=== PATIENT | male | born 1940 | race Caucasian/White ===

== ENCOUNTER 2017-02-13 00:21 | Day surgery (SDC) | payer OTHER, SELFPAY ==
[~2017-02-13 00:21] MED LIST: ALBU90OI INH; ALLO100 PO; AMLO5 PO; AMOCLA250S PO; ASPI81CH PO; Amlodipine Bes2.5 MG; Citrate Of Mag300 ML PO; Cleocin HCl150 MG PO; FLUOCINONIDE TOP; GABA100 PO; GLIP5ER PO; HYDHCL25 PO; LOSA25; LOSA50 PO; Lasix40 MG PO; METF500 PO; METF500C PO; Micro-K10 MEQ; Micro-K10 MEQ PO; Omega 3 Fish O1 EACH PO; PRAV20; PRAV20 PO; Robaxin500 MG PO; SPIR25 PO; TRAM50; TRAM50 PO; TRAZ100 PO; Ultram50 MG PO; [UNRECOGNIZED DRUG - OTHER] TOP
== END 2017-02-13 12:35 | disposition home or self-care (01) ==
LOC: WOUND 00:21
PROC: 2W1TX6Z Compression of Left Foot using Pressure Dressing (ICD-10-PCS; principal; 2017-02-13)
DX: Z48.00 Encounter for change or removal of nonsurgical wound dressing (principal); E11.621 Type 2 diabetes mellitus with foot ulcer; L97.529 Non-pressure chronic ulcer of other part of left foot with unspecified severity; S91.302A Unspecified open wound, left foot, initial encounter
CPT/HCPCS: G0463

== ENCOUNTER 2017-02-15 10:00 | Day surgery (SDC) | payer OTHER, SELFPAY | END 2017-02-15 14:31 | disposition home or self-care (01) | LOC: HBO 10:00 | PROC: 5A05221 Extracorporeal Hyperbaric Oxygenation, Continuous (ICD-10-PCS; principal; 2017-02-15) | DX: Z48.00 Encounter for change or removal of nonsurgical wound dressing (principal); E11.621 Type 2 diabetes mellitus with foot ulcer; S91.302A Unspecified open wound, left foot, initial encounter | CPT/HCPCS: 82947; G0277 ==

== ENCOUNTER 2017-02-19 09:29 | Day surgery (SDC) | payer OTHER, SELFPAY | END 2017-02-19 12:58 | disposition home or self-care (01) | LOC: HBO 09:29 | DX: Z48.00 Encounter for change or removal of nonsurgical wound dressing (principal); E11.621 Type 2 diabetes mellitus with foot ulcer; S91.302A Unspecified open wound, left foot, initial encounter | CPT/HCPCS: 82947; G0277 ==

== ENCOUNTER 2017-02-20 09:30 | Day surgery (SDC) | payer OTHER, SELFPAY | END 2017-02-20 22:59 | disposition home or self-care (01) | LOC: HBO 09:30 | PROC: 5A05221 Extracorporeal Hyperbaric Oxygenation, Continuous (ICD-10-PCS; principal; 2017-02-20) | DX: Z48.00 Encounter for change or removal of nonsurgical wound dressing (principal); E11.621 Type 2 diabetes mellitus with foot ulcer; S91.302A Unspecified open wound, left foot, initial encounter | CPT/HCPCS: 82947; G0277 ==

== ENCOUNTER 2017-02-20 12:33 | Day surgery (SDC) | payer OTHER, SELFPAY | END 2017-02-20 17:17 | disposition home or self-care (01) | LOC: WOUND 12:33 | DX: Z48.00 Encounter for change or removal of nonsurgical wound dressing (principal); E11.621 Type 2 diabetes mellitus with foot ulcer; S91.302A Unspecified open wound, left foot, initial encounter; L97.429 Non-pressure chronic ulcer of left heel and midfoot with unspecified severity | CPT/HCPCS: G0463 ==

== ENCOUNTER 2017-02-21 09:27 | Day surgery (SDC) | payer OTHER, SELFPAY | END 2017-02-21 23:15 | disposition home or self-care (01) | LOC: HBO 09:27 | PROC: 5A05221 Extracorporeal Hyperbaric Oxygenation, Continuous (ICD-10-PCS; principal; 2017-02-21) | DX: Z48.00 Encounter for change or removal of nonsurgical wound dressing (principal); E11.621 Type 2 diabetes mellitus with foot ulcer; S91.302A Unspecified open wound, left foot, initial encounter | CPT/HCPCS: 82947; G0277 ==

== ENCOUNTER 2017-02-25 00:19 | Day surgery (SDC) | payer OTHER, SELFPAY | END 2017-02-25 13:21 | disposition home or self-care (01) | LOC: HBO 00:19 | DX: Z48.00 Encounter for change or removal of nonsurgical wound dressing (principal); E11.621 Type 2 diabetes mellitus with foot ulcer; S91.302A Unspecified open wound, left foot, initial encounter | CPT/HCPCS: 82947; G0277 ==

== ENCOUNTER 2017-02-26 00:34 | Day surgery (SDC) | payer OTHER, SELFPAY | END 2017-02-26 16:58 | disposition home or self-care (01) | LOC: HBO 00:34 | DX: Z48.00 Encounter for change or removal of nonsurgical wound dressing (principal); E11.621 Type 2 diabetes mellitus with foot ulcer; S91.302A Unspecified open wound, left foot, initial encounter | CPT/HCPCS: 82947; G0277 ==

== ENCOUNTER 2017-02-27 10:00 | Day surgery (SDC) | payer OTHER, SELFPAY | END 2017-02-28 22:49 | disposition home or self-care (01) | LOC: HBO 10:00 | DX: Z48.00 Encounter for change or removal of nonsurgical wound dressing (principal); E11.621 Type 2 diabetes mellitus with foot ulcer; S91.302A Unspecified open wound, left foot, initial encounter | CPT/HCPCS: 82947; G0277 ==

== ENCOUNTER 2017-02-27 12:38 | Day surgery (SDC) | payer OTHER, SELFPAY | END 2017-02-27 16:03 | disposition home or self-care (01) | LOC: WOUND 12:38 | PROC: 2W1MX6Z Compression of Left Lower Extremity using Pressure Dressing (ICD-10-PCS; principal; 2017-02-27) | PROC: 2W1TX6Z Compression of Left Foot using Pressure Dressing (ICD-10-PCS; principal; 2017-02-27) | DX: Z48.00 Encounter for change or removal of nonsurgical wound dressing (principal); E11.621 Type 2 diabetes mellitus with foot ulcer; S91.302A Unspecified open wound, left foot, initial encounter; F17.200 Nicotine dependence, unspecified, uncomplicated; I73.9 Peripheral vascular disease, unspecified; J44.9 Chronic obstructive pulmonary disease, unspecified; G47.30 Sleep apnea, unspecified; L97.422 Non-pressure chronic ulcer of left heel and midfoot with fat layer exposed; L97.822 Non-pressure chronic ulcer of other part of left lower leg with fat layer exposed | CPT/HCPCS: G0463 ==

== ENCOUNTER 2017-02-28 09:30 | Day surgery (SDC) | payer OTHER, SELFPAY | END 2017-02-28 16:52 | disposition home or self-care (01) | LOC: HBO 09:30 | PROC: 5A05221 Extracorporeal Hyperbaric Oxygenation, Continuous (ICD-10-PCS; principal; 2017-02-28) | DX: Z48.00 Encounter for change or removal of nonsurgical wound dressing (principal); E11.621 Type 2 diabetes mellitus with foot ulcer; S91.302A Unspecified open wound, left foot, initial encounter | CPT/HCPCS: 82947; G0277 ==

== ENCOUNTER 2017-03-01 12:00 | Day surgery (SDC) | payer OTHER, SELFPAY | END 2017-03-01 12:35 | disposition home or self-care (01) | LOC: WOUND 12:00 | DX: Z48.00 Encounter for change or removal of nonsurgical wound dressing (principal); E11.621 Type 2 diabetes mellitus with foot ulcer; S91.302A Unspecified open wound, left foot, initial encounter ==

== ENCOUNTER 2017-03-04 09:41 | Day surgery (SDC) | payer OTHER, SELFPAY | END 2017-03-04 22:56 | disposition home or self-care (01) | LOC: HBO 09:41 | PROC: 5A05221 Extracorporeal Hyperbaric Oxygenation, Continuous (ICD-10-PCS; principal; 2017-03-04) | DX: Z48.00 Encounter for change or removal of nonsurgical wound dressing (principal); E11.621 Type 2 diabetes mellitus with foot ulcer; S91.302A Unspecified open wound, left foot, initial encounter | CPT/HCPCS: 82947; G0277 ==

== ENCOUNTER 2017-03-05 09:30 | Day surgery (SDC) | payer OTHER, SELFPAY | END 2017-03-05 22:53 | disposition home or self-care (01) | LOC: HBO 09:30 | PROC: 5A05221 Extracorporeal Hyperbaric Oxygenation, Continuous (ICD-10-PCS; principal; 2017-03-05) | DX: Z48.00 Encounter for change or removal of nonsurgical wound dressing (principal); E11.621 Type 2 diabetes mellitus with foot ulcer; S91.302A Unspecified open wound, left foot, initial encounter | CPT/HCPCS: 82947; G0277 ==

== ENCOUNTER 2017-03-06 12:30 | Day surgery (SDC) | payer OTHER, SELFPAY | END 2017-03-06 14:52 | disposition home or self-care (01) | LOC: WOUND 12:30 | DX: Z48.00 Encounter for change or removal of nonsurgical wound dressing (principal); E11.621 Type 2 diabetes mellitus with foot ulcer; S91.302A Unspecified open wound, left foot, initial encounter; L97.529 Non-pressure chronic ulcer of other part of left foot with unspecified severity ==

== ENCOUNTER 2017-03-07 10:00 | Day surgery (SDC) | payer OTHER, SELFPAY | END 2017-03-07 12:26 | disposition home or self-care (01) | LOC: HBO 10:00 | PROC: 5A05221 Extracorporeal Hyperbaric Oxygenation, Continuous (ICD-10-PCS; principal; 2017-03-07) | DX: Z48.00 Encounter for change or removal of nonsurgical wound dressing (principal); E11.621 Type 2 diabetes mellitus with foot ulcer; S91.302A Unspecified open wound, left foot, initial encounter | CPT/HCPCS: 82947; G0277 ==

== ENCOUNTER 2017-03-08 13:00 | Day surgery (SDC) | payer OTHER, SELFPAY | END 2017-03-08 14:39 | disposition home or self-care (01) | LOC: WOUND 13:00 | PROC: 2W1TX6Z Compression of Left Foot using Pressure Dressing (ICD-10-PCS; principal; 2017-03-08) | DX: Z48.00 Encounter for change or removal of nonsurgical wound dressing (principal); E11.621 Type 2 diabetes mellitus with foot ulcer; S91.302A Unspecified open wound, left foot, initial encounter; E08.621 Diabetes mellitus due to underlying condition with foot ulcer ==

== ENCOUNTER 2017-03-12 10:00 | Day surgery (SDC) | payer OTHER, SELFPAY | END 2017-03-12 12:55 | disposition home or self-care (01) | LOC: HBO 10:00 | DX: Z48.00 Encounter for change or removal of nonsurgical wound dressing (principal); E11.621 Type 2 diabetes mellitus with foot ulcer; S91.302A Unspecified open wound, left foot, initial encounter; L97.429 Non-pressure chronic ulcer of left heel and midfoot with unspecified severity; L97.929 Non-pressure chronic ulcer of unspecified part of left lower leg with unspecified severity | CPT/HCPCS: 82947; G0277 ==

== ENCOUNTER 2017-03-14 10:00 | Day surgery (SDC) | payer OTHER, SELFPAY | END 2017-03-14 11:44 | disposition home or self-care (01) | LOC: HBO 10:00 | PROC: 5A05221 Extracorporeal Hyperbaric Oxygenation, Continuous (ICD-10-PCS; principal; 2017-03-14) | DX: E11.621 Type 2 diabetes mellitus with foot ulcer (principal); S91.302A Unspecified open wound, left foot, initial encounter; Z48.00 Encounter for change or removal of nonsurgical wound dressing | CPT/HCPCS: 82947; 87070; 87075; 87077; 87147; 87186; 87205; G0277; G0463 ==

== ENCOUNTER 2017-03-19 09:49 | Day surgery (SDC) | payer OTHER, SELFPAY | END 2017-03-19 23:04 | disposition home or self-care (01) | LOC: HBO 09:49 | DX: Z48.00 Encounter for change or removal of nonsurgical wound dressing (principal); E11.621 Type 2 diabetes mellitus with foot ulcer; S91.302A Unspecified open wound, left foot, initial encounter | CPT/HCPCS: 82947; G0277; G0463 ==

== ENCOUNTER 2017-03-21 00:53 | Day surgery (SDC) | payer OTHER, SELFPAY | END 2017-03-21 22:46 | disposition home or self-care (01) | LOC: HBO 00:53 | PROC: 5A05221 Extracorporeal Hyperbaric Oxygenation, Continuous (ICD-10-PCS; principal; 2017-03-21) | DX: Z48.00 Encounter for change or removal of nonsurgical wound dressing (principal); E11.621 Type 2 diabetes mellitus with foot ulcer; S91.302A Unspecified open wound, left foot, initial encounter | CPT/HCPCS: 82947; G0277 ==

== ENCOUNTER 2017-03-22 00:43 | Day surgery (SDC) | payer OTHER, SELFPAY | END 2017-03-22 23:30 | disposition home or self-care (01) | LOC: WOUND 00:43 | DX: Z48.00 Encounter for change or removal of nonsurgical wound dressing (principal); E11.621 Type 2 diabetes mellitus with foot ulcer; S91.302A Unspecified open wound, left foot, initial encounter; E11.622 Type 2 diabetes mellitus with other skin ulcer; L97.929 Non-pressure chronic ulcer of unspecified part of left lower leg with unspecified severity | CPT/HCPCS: G0463 ==

== ENCOUNTER 2017-03-22 00:44 | Day surgery (SDC) | payer OTHER, SELFPAY | END 2017-03-22 23:30 | disposition home or self-care (01) | LOC: HBO 00:44 | PROC: 5A05221 Extracorporeal Hyperbaric Oxygenation, Continuous (ICD-10-PCS; principal; 2017-03-22) | DX: E11.621 Type 2 diabetes mellitus with foot ulcer (principal); S91.302A Unspecified open wound, left foot, initial encounter; Z48.00 Encounter for change or removal of nonsurgical wound dressing | CPT/HCPCS: 82947; G0277; G0463 ==

== ENCOUNTER 2017-03-25 00:03 | Day surgery (SDC) | payer OTHER, SELFPAY | END 2017-03-25 22:54 | disposition home or self-care (01) | LOC: HBO 00:03 | PROC: 5A05221 Extracorporeal Hyperbaric Oxygenation, Continuous (ICD-10-PCS; principal; 2017-03-25) | DX: Z48.00 Encounter for change or removal of nonsurgical wound dressing (principal); E11.621 Type 2 diabetes mellitus with foot ulcer; S91.302A Unspecified open wound, left foot, initial encounter | CPT/HCPCS: 82947; G0277 ==

== ENCOUNTER 2017-03-25 00:11 | Day surgery (SDC) | payer OTHER, SELFPAY | END 2017-03-25 11:47 | disposition home or self-care (01) | LOC: WOUND 00:11 | PROC: 0HBLXZZ Excision of Left Lower Leg Skin, External Approach (ICD-10-PCS; principal; 2017-03-25) | DX: Z48.00 Encounter for change or removal of nonsurgical wound dressing (principal); E11.621 Type 2 diabetes mellitus with foot ulcer; S91.302A Unspecified open wound, left foot, initial encounter | CPT/HCPCS: G0463 ==

== ENCOUNTER 2017-03-27 00:05 | Day surgery (SDC) | payer OTHER, SELFPAY | END 2017-03-27 09:31 | disposition home or self-care (01) | LOC: WOUND 00:05 | DX: Z48.00 Encounter for change or removal of nonsurgical wound dressing (principal); E11.621 Type 2 diabetes mellitus with foot ulcer; S91.302A Unspecified open wound, left foot, initial encounter | CPT/HCPCS: G0463 ==

== ENCOUNTER 2017-03-29 07:51 | Day surgery (SDC) | payer OTHER, SELFPAY | END 2017-03-29 10:48 | disposition home or self-care (01) | LOC: WOUND 07:51 | DX: Z48.00 Encounter for change or removal of nonsurgical wound dressing (principal); E11.621 Type 2 diabetes mellitus with foot ulcer; S91.302A Unspecified open wound, left foot, initial encounter | CPT/HCPCS: G0463 ==

== ENCOUNTER 2017-04-01 00:13 | Day surgery (SDC) | payer OTHER, SELFPAY | END 2017-04-01 14:34 | disposition home or self-care (01) | LOC: WOUND 00:13 | DX: Z48.00 Encounter for change or removal of nonsurgical wound dressing (principal); E11.621 Type 2 diabetes mellitus with foot ulcer; S91.302A Unspecified open wound, left foot, initial encounter | CPT/HCPCS: G0463 ==

== ENCOUNTER 2017-04-03 10:19 | Day surgery (SDC) | payer OTHER, SELFPAY | END 2017-04-03 12:40 | disposition home or self-care (01) | LOC: WOUND 10:19 | DX: Z48.00 Encounter for change or removal of nonsurgical wound dressing (principal); E11.621 Type 2 diabetes mellitus with foot ulcer; S91.302A Unspecified open wound, left foot, initial encounter | CPT/HCPCS: G0463 ==

== ENCOUNTER 2017-04-05 00:37 | Day surgery (SDC) | payer OTHER, SELFPAY | END 2017-04-05 22:00 | disposition home or self-care (01) | LOC: WOUND 00:37 | PROC: 0HBNXZZ Excision of Left Foot Skin, External Approach (ICD-10-PCS; principal; 2017-04-05) | DX: Z48.00 Encounter for change or removal of nonsurgical wound dressing (principal); E11.621 Type 2 diabetes mellitus with foot ulcer; S91.302A Unspecified open wound, left foot, initial encounter; L97.429 Non-pressure chronic ulcer of left heel and midfoot with unspecified severity | CPT/HCPCS: G0463 ==

== ENCOUNTER 2017-04-08 09:53 | Day surgery (SDC) | payer OTHER, SELFPAY | END 2017-04-08 10:33 | disposition home or self-care (01) | LOC: WOUND 09:53 | DX: Z48.00 Encounter for change or removal of nonsurgical wound dressing (principal); E11.621 Type 2 diabetes mellitus with foot ulcer; L97.429 Non-pressure chronic ulcer of left heel and midfoot with unspecified severity; S91.302A Unspecified open wound, left foot, initial encounter | CPT/HCPCS: G0463 ==

== ENCOUNTER 2017-04-10 00:10 | Day surgery (SDC) | payer OTHER, SELFPAY | END 2017-04-10 22:47 | disposition home or self-care (01) | LOC: HBO 00:10 | PROC: 5A05221 Extracorporeal Hyperbaric Oxygenation, Continuous (ICD-10-PCS; principal; 2017-04-10) | DX: E11.621 Type 2 diabetes mellitus with foot ulcer (principal); S91.302A Unspecified open wound, left foot, initial encounter; Z48.00 Encounter for change or removal of nonsurgical wound dressing | CPT/HCPCS: 82947; G0277; G0463 ==

== ENCOUNTER 2017-04-10 00:14 | Day surgery (SDC) | payer OTHER, SELFPAY | END 2017-04-10 22:48 | disposition home or self-care (01) | LOC: WOUND 00:14 | DX: Z48.00 Encounter for change or removal of nonsurgical wound dressing (principal); E11.621 Type 2 diabetes mellitus with foot ulcer; S91.302A Unspecified open wound, left foot, initial encounter | CPT/HCPCS: G0463 ==

== ENCOUNTER 2017-04-11 00:23 | Day surgery (SDC) | payer OTHER, SELFPAY | END 2017-04-11 23:15 | disposition home or self-care (01) | LOC: HBO 00:23 | DX: Z48.00 Encounter for change or removal of nonsurgical wound dressing (principal); E11.621 Type 2 diabetes mellitus with foot ulcer; S91.302D Unspecified open wound, left foot, subsequent encounter; L97.429 Non-pressure chronic ulcer of left heel and midfoot with unspecified severity; L97.829 Non-pressure chronic ulcer of other part of left lower leg with unspecified severity | CPT/HCPCS: 82947; G0277 ==

== ENCOUNTER 2017-04-12 00:48 | Day surgery (SDC) | payer OTHER, SELFPAY | END 2017-04-12 23:27 | disposition home or self-care (01) | LOC: WOUND 00:48 | DX: Z48.00 Encounter for change or removal of nonsurgical wound dressing (principal); E11.621 Type 2 diabetes mellitus with foot ulcer; L97.429 Non-pressure chronic ulcer of left heel and midfoot with unspecified severity; S91.302A Unspecified open wound, left foot, initial encounter; F17.210 Nicotine dependence, cigarettes, uncomplicated; J44.9 Chronic obstructive pulmonary disease, unspecified; G47.30 Sleep apnea, unspecified | CPT/HCPCS: 82947; G0463 ==

== ENCOUNTER 2017-04-12 00:56 | Day surgery (SDC) | payer OTHER, SELFPAY | END 2017-04-12 23:27 | disposition home or self-care (01) | LOC: HBO 00:56 | PROC: 5A05221 Extracorporeal Hyperbaric Oxygenation, Continuous (ICD-10-PCS; principal; 2017-04-12) | DX: E11.621 Type 2 diabetes mellitus with foot ulcer (principal); S91.302A Unspecified open wound, left foot, initial encounter | CPT/HCPCS: 82947; G0277; G0463 ==

== ENCOUNTER 2017-04-15 | Day surgery (SDC) | END 2017-04-15 23:00 | disposition home or self-care (01) ==

== ENCOUNTER 2017-04-15 00:19 | Day surgery (SDC) | payer OTHER, SELFPAY | END 2017-04-15 22:51 | disposition home or self-care (01) | LOC: WOUND 00:19 | DX: Z48.00 Encounter for change or removal of nonsurgical wound dressing (principal); E11.621 Type 2 diabetes mellitus with foot ulcer; S91.302A Unspecified open wound, left foot, initial encounter | CPT/HCPCS: G0463 ==

== ENCOUNTER 2017-04-17 07:44 | Day surgery (SDC) | payer OTHER, SELFPAY | END 2017-04-17 22:37 | disposition home or self-care (01) | LOC: WOUND 07:44 | DX: Z48.00 Encounter for change or removal of nonsurgical wound dressing (principal); E11.621 Type 2 diabetes mellitus with foot ulcer; S91.302A Unspecified open wound, left foot, initial encounter | CPT/HCPCS: G0463 ==

== ENCOUNTER 2017-04-17 08:02 | Day surgery (SDC) | payer OTHER, SELFPAY | END 2017-04-17 22:37 | disposition home or self-care (01) | LOC: HBO 08:02 | PROC: 5A05221 Extracorporeal Hyperbaric Oxygenation, Continuous (ICD-10-PCS; principal; 2017-04-17) | DX: E11.621 Type 2 diabetes mellitus with foot ulcer (principal); S91.302A Unspecified open wound, left foot, initial encounter | CPT/HCPCS: 82947; G0277; G0463 ==

== ENCOUNTER 2017-04-18 01:00 | Day surgery (SDC) | payer OTHER, SELFPAY | END 2017-04-18 22:55 | disposition home or self-care (01) | LOC: HBO 01:00 | PROC: 5A05221 Extracorporeal Hyperbaric Oxygenation, Continuous (ICD-10-PCS; principal; 2017-04-18) | DX: E11.621 Type 2 diabetes mellitus with foot ulcer (principal); S91.302A Unspecified open wound, left foot, initial encounter | CPT/HCPCS: 82947; G0277 ==

== ENCOUNTER 2017-04-19 00:08 | Day surgery (SDC) | payer OTHER, SELFPAY | END 2017-04-20 22:33 | disposition home or self-care (01) | LOC: HBO 00:08 | PROC: 5A05221 Extracorporeal Hyperbaric Oxygenation, Continuous (ICD-10-PCS; principal; 2017-04-19) | DX: E11.621 Type 2 diabetes mellitus with foot ulcer (principal); S91.302A Unspecified open wound, left foot, initial encounter; L97.529 Non-pressure chronic ulcer of other part of left foot with unspecified severity | CPT/HCPCS: 82947; G0277 ==

== ENCOUNTER 2017-04-19 00:10 | Day surgery (SDC) | payer OTHER, SELFPAY | END 2017-04-19 23:06 | disposition home or self-care (01) | LOC: WOUND 00:10 | PROC: 0HBLXZZ Excision of Left Lower Leg Skin, External Approach (ICD-10-PCS; principal; 2017-04-19) | PROC: 0HBNXZZ Excision of Left Foot Skin, External Approach (ICD-10-PCS; principal; 2017-04-19) | DX: E11.621 Type 2 diabetes mellitus with foot ulcer (principal); E11.622 Type 2 diabetes mellitus with other skin ulcer; L97.429 Non-pressure chronic ulcer of left heel and midfoot with unspecified severity; L97.229 Non-pressure chronic ulcer of left calf with unspecified severity; F17.210 Nicotine dependence, cigarettes, uncomplicated; J44.9 Chronic obstructive pulmonary disease, unspecified; G47.30 Sleep apnea, unspecified; S91.302A Unspecified open wound, left foot, initial encounter | CPT/HCPCS: 87070; 87075; 87077; 87147; 87186; 87205; G0463 ==

== ENCOUNTER 2017-04-23 03:26 | Day surgery (SDC) | payer OTHER, SELFPAY | END 2017-04-23 23:22 | disposition home or self-care (01) | LOC: HBO 03:26 | PROC: 5A05221 Extracorporeal Hyperbaric Oxygenation, Continuous (ICD-10-PCS; principal; 2017-04-23) | DX: E11.621 Type 2 diabetes mellitus with foot ulcer (principal); S91.302A Unspecified open wound, left foot, initial encounter | CPT/HCPCS: 82947; G0277 ==

== ENCOUNTER 2017-04-23 07:34 | Day surgery (SDC) | payer OTHER, SELFPAY | END 2017-04-23 23:23 | disposition home or self-care (01) | LOC: WOUND 07:34 | DX: Z48.00 Encounter for change or removal of nonsurgical wound dressing (principal); E11.621 Type 2 diabetes mellitus with foot ulcer; S91.302A Unspecified open wound, left foot, initial encounter | CPT/HCPCS: G0463 ==

== ENCOUNTER 2017-04-25 08:45 | Day surgery (SDC) | payer OTHER, SELFPAY | END 2017-04-25 22:38 | disposition home or self-care (01) | LOC: HBO 08:45 | PROC: 5A05221 Extracorporeal Hyperbaric Oxygenation, Continuous (ICD-10-PCS; principal; 2017-04-25) | DX: E11.621 Type 2 diabetes mellitus with foot ulcer (principal); S91.302A Unspecified open wound, left foot, initial encounter; L97.429 Non-pressure chronic ulcer of left heel and midfoot with unspecified severity; F17.210 Nicotine dependence, cigarettes, uncomplicated | CPT/HCPCS: 82947; G0277; G0463 ==

== ENCOUNTER 2017-04-26 10:42 | Day surgery (SDC) | payer OTHER, SELFPAY | END 2017-04-26 23:15 | disposition home or self-care (01) | LOC: HBO 10:42 | DX: E11.621 Type 2 diabetes mellitus with foot ulcer (principal); S91.302A Unspecified open wound, left foot, initial encounter | CPT/HCPCS: 82947; G0277 ==

== ENCOUNTER 2017-04-30 00:04 | Day surgery (SDC) | payer OTHER, SELFPAY | END 2017-04-30 22:43 | disposition home or self-care (01) | LOC: HBO 00:04 | PROC: 5A05221 Extracorporeal Hyperbaric Oxygenation, Continuous (ICD-10-PCS; principal; 2017-04-30) | DX: E11.621 Type 2 diabetes mellitus with foot ulcer (principal); S91.302A Unspecified open wound, left foot, initial encounter | CPT/HCPCS: 82947; G0277 ==

== ENCOUNTER 2017-04-30 00:09 | Day surgery (SDC) | payer OTHER, SELFPAY | END 2017-04-30 15:52 | disposition home or self-care (01) | LOC: WOUND 00:09 | PROC: 0HBNXZZ Excision of Left Foot Skin, External Approach (ICD-10-PCS; principal; 2017-04-30) | PROC: 0HBLXZZ Excision of Left Lower Leg Skin, External Approach (ICD-10-PCS; principal; 2017-04-30) | DX: E11.621 Type 2 diabetes mellitus with foot ulcer (principal); S91.302A Unspecified open wound, left foot, initial encounter; L97.429 Non-pressure chronic ulcer of left heel and midfoot with unspecified severity; F17.210 Nicotine dependence, cigarettes, uncomplicated; J44.9 Chronic obstructive pulmonary disease, unspecified; G47.30 Sleep apnea, unspecified | CPT/HCPCS: G0463 ==

== ENCOUNTER 2017-05-03 01:22 | Day surgery (SDC) | payer OTHER, SELFPAY | END 2017-05-03 17:03 | disposition home or self-care (01) | LOC: WOUND 01:22 | DX: E11.621 Type 2 diabetes mellitus with foot ulcer (principal); S91.302A Unspecified open wound, left foot, initial encounter | CPT/HCPCS: G0463 ==

== ENCOUNTER 2017-05-03 12:17 | Day surgery (SDC) | payer OTHER, SELFPAY | END 2017-05-03 16:59 | disposition home or self-care (01) | LOC: HBO 12:17 | PROC: 5A05221 Extracorporeal Hyperbaric Oxygenation, Continuous (ICD-10-PCS; principal; 2017-05-03) | DX: E11.621 Type 2 diabetes mellitus with foot ulcer (principal); S91.302A Unspecified open wound, left foot, initial encounter | CPT/HCPCS: 82947; G0277 ==

== ENCOUNTER 2017-05-06 00:12 | Day surgery (SDC) | payer OTHER, SELFPAY | END 2017-05-06 16:48 | disposition home or self-care (01) | LOC: HBO 00:12 | PROC: 5A05221 Extracorporeal Hyperbaric Oxygenation, Continuous (ICD-10-PCS; principal; 2017-05-06) | DX: E11.621 Type 2 diabetes mellitus with foot ulcer (principal); S91.302A Unspecified open wound, left foot, initial encounter | CPT/HCPCS: 82947; G0277; G0463 ==

== ENCOUNTER 2017-05-09 00:51 | Day surgery (SDC) | payer OTHER, SELFPAY | END 2017-05-09 11:27 | disposition home or self-care (01) | LOC: HBO 00:51 | DX: E11.621 Type 2 diabetes mellitus with foot ulcer (principal); S91.302A Unspecified open wound, left foot, initial encounter | CPT/HCPCS: 82947; G0277 ==

== ENCOUNTER 2017-05-10 00:12 | Day surgery (SDC) | payer OTHER, SELFPAY | END 2017-05-10 15:54 | disposition home or self-care (01) | LOC: HBO 00:12 | DX: E11.621 Type 2 diabetes mellitus with foot ulcer (principal); S91.302A Unspecified open wound, left foot, initial encounter | CPT/HCPCS: 82947; G0277 ==

== ENCOUNTER 2017-05-10 00:24 | Day surgery (SDC) | payer OTHER, SELFPAY | END 2017-05-10 23:06 | disposition home or self-care (01) | LOC: WOUND 00:24 | PROC: 0HBNXZZ Excision of Left Foot Skin, External Approach (ICD-10-PCS; principal; 2017-05-10) | DX: Z48.00 Encounter for change or removal of nonsurgical wound dressing (principal); E11.621 Type 2 diabetes mellitus with foot ulcer; S91.302A Unspecified open wound, left foot, initial encounter; I77.1 Stricture of artery; I73.9 Peripheral vascular disease, unspecified; L97.429 Non-pressure chronic ulcer of left heel and midfoot with unspecified severity; L97.829 Non-pressure chronic ulcer of other part of left lower leg with unspecified severity; L57.0 Actinic keratosis; F17.290 Nicotine dependence, other tobacco product, uncomplicated; J44.9 Chronic obstructive pulmonary disease, unspecified; G47.30 Sleep apnea, unspecified | CPT/HCPCS: G0463 ==

== ENCOUNTER 2017-05-14 00:23 | Day surgery (SDC) | payer OTHER, SELFPAY | END 2017-05-14 12:23 | disposition home or self-care (01) | LOC: WOUND 00:23 | DX: Z48.00 Encounter for change or removal of nonsurgical wound dressing (principal); E11.621 Type 2 diabetes mellitus with foot ulcer; S91.302A Unspecified open wound, left foot, initial encounter; L97.529 Non-pressure chronic ulcer of other part of left foot with unspecified severity | CPT/HCPCS: G0463 ==

== ENCOUNTER 2017-05-14 08:09 | Day surgery (SDC) | payer OTHER, SELFPAY | END 2017-05-14 22:39 | disposition home or self-care (01) | LOC: HBO 08:09 | DX: Z48.00 Encounter for change or removal of nonsurgical wound dressing (principal); E11.621 Type 2 diabetes mellitus with foot ulcer; L97.429 Non-pressure chronic ulcer of left heel and midfoot with unspecified severity; S91.302A Unspecified open wound, left foot, initial encounter; I73.9 Peripheral vascular disease, unspecified; E11.622 Type 2 diabetes mellitus with other skin ulcer; L97.229 Non-pressure chronic ulcer of left calf with unspecified severity; F17.290 Nicotine dependence, other tobacco product, uncomplicated; J44.9 Chronic obstructive pulmonary disease, unspecified; G47.30 Sleep apnea, unspecified | CPT/HCPCS: 82947; G0277 ==

== ENCOUNTER 2017-05-16 00:46 | Day surgery (SDC) | payer OTHER, SELFPAY | END 2017-05-16 22:54 | disposition home or self-care (01) | LOC: HBO 00:46 | PROC: 5A05221 Extracorporeal Hyperbaric Oxygenation, Continuous (ICD-10-PCS; principal; 2017-05-16) | DX: E11.621 Type 2 diabetes mellitus with foot ulcer (principal); E11.51 Type 2 diabetes mellitus with diabetic peripheral angiopathy without gangrene; S91.302A Unspecified open wound, left foot, initial encounter; I10 Essential (primary) hypertension; L97.421 Non-pressure chronic ulcer of left heel and midfoot limited to breakdown of skin; F17.210 Nicotine dependence, cigarettes, uncomplicated | CPT/HCPCS: 82947; G0277; G0463 ==

== ENCOUNTER 2017-05-21 10:00 | Day surgery (SDC) | payer OTHER, SELFPAY | END 2017-05-21 22:49 | disposition home or self-care (01) | LOC: HBO 10:00 | PROC: 5A05221 Extracorporeal Hyperbaric Oxygenation, Continuous (ICD-10-PCS; principal; 2017-05-21) | DX: E11.621 Type 2 diabetes mellitus with foot ulcer (principal); S91.302A Unspecified open wound, left foot, initial encounter; L97.421 Non-pressure chronic ulcer of left heel and midfoot limited to breakdown of skin; F17.210 Nicotine dependence, cigarettes, uncomplicated; Z48.00 Encounter for change or removal of nonsurgical wound dressing | CPT/HCPCS: 82947; G0277; G0463 ==

== ENCOUNTER 2017-05-21 10:13 | Day surgery (SDC) | payer OTHER, SELFPAY | END 2017-05-21 22:49 | disposition home or self-care (01) | LOC: WOUND 10:13 | DX: Z48.00 Encounter for change or removal of nonsurgical wound dressing (principal); E11.621 Type 2 diabetes mellitus with foot ulcer; S91.302A Unspecified open wound, left foot, initial encounter | CPT/HCPCS: G0277; G0463 ==

== ENCOUNTER 2017-05-23 01:16 | Day surgery (SDC) | payer OTHER, SELFPAY | END 2017-05-23 22:50 | disposition home or self-care (01) | LOC: HBO 01:16 → WOUND 09:44 → HBO 11:21 | PROC: 5A05221 Extracorporeal Hyperbaric Oxygenation, Continuous (ICD-10-PCS; principal; 2017-05-23) | DX: E11.621 Type 2 diabetes mellitus with foot ulcer (principal); S91.302A Unspecified open wound, left foot, initial encounter; L97.421 Non-pressure chronic ulcer of left heel and midfoot limited to breakdown of skin; F17.210 Nicotine dependence, cigarettes, uncomplicated | CPT/HCPCS: 82947; G0277; G0463 ==

== ENCOUNTER 2017-05-24 11:52 | Day surgery (SDC) | payer OTHER, SELFPAY | END 2017-05-24 22:49 | disposition home or self-care (01) | LOC: HBO 11:52 | PROC: 5A05221 Extracorporeal Hyperbaric Oxygenation, Continuous (ICD-10-PCS; principal; 2017-05-24) | DX: E11.621 Type 2 diabetes mellitus with foot ulcer (principal); S91.302A Unspecified open wound, left foot, initial encounter | CPT/HCPCS: 82947; G0277 ==

== ENCOUNTER 2017-05-27 09:01 | Day surgery (SDC) | payer OTHER, SELFPAY | END 2017-06-04 23:02 | disposition home or self-care (01) | LOC: HBO 09:01 | PROC: 5A05221 Extracorporeal Hyperbaric Oxygenation, Continuous (ICD-10-PCS; principal; 2017-06-04) | DX: E11.621 Type 2 diabetes mellitus with foot ulcer (principal); S91.302A Unspecified open wound, left foot, initial encounter; L97.529 Non-pressure chronic ulcer of other part of left foot with unspecified severity | CPT/HCPCS: 82947; G0277 ==

== ENCOUNTER 2017-05-27 09:31 | Day surgery (SDC) | payer OTHER, SELFPAY | END 2017-05-27 23:20 | disposition home or self-care (01) | LOC: WOUND 09:31 | DX: Z48.00 Encounter for change or removal of nonsurgical wound dressing (principal); E11.621 Type 2 diabetes mellitus with foot ulcer; S91.302A Unspecified open wound, left foot, initial encounter | CPT/HCPCS: G0463 ==

== ENCOUNTER 2017-05-28 07:58 | Day surgery (SDC) | payer OTHER, SELFPAY | END 2017-05-28 12:21 | disposition home or self-care (01) | LOC: HBO 07:58 | PROC: 5A05221 Extracorporeal Hyperbaric Oxygenation, Continuous (ICD-10-PCS; principal; 2017-05-28) | DX: E11.621 Type 2 diabetes mellitus with foot ulcer (principal); S91.302A Unspecified open wound, left foot, initial encounter | CPT/HCPCS: 82947; G0277 ==

== ENCOUNTER 2017-05-30 08:00 | Day surgery (SDC) | payer OTHER, SELFPAY | END 2017-05-30 22:43 | disposition home or self-care (01) | LOC: HBO 08:00 | DX: E11.621 Type 2 diabetes mellitus with foot ulcer (principal); S91.302A Unspecified open wound, left foot, initial encounter | CPT/HCPCS: 82947; G0277 ==

== ENCOUNTER 2017-05-30 09:14 | Day surgery (SDC) | payer OTHER, SELFPAY | END 2017-05-30 22:43 | disposition home or self-care (01) | LOC: WOUND 09:14 | DX: E11.621 Type 2 diabetes mellitus with foot ulcer (principal); L97.421 Non-pressure chronic ulcer of left heel and midfoot limited to breakdown of skin; S91.302A Unspecified open wound, left foot, initial encounter | CPT/HCPCS: G0463 ==

== ENCOUNTER 2017-06-04 00:24 | Day surgery (SDC) | payer OTHER, SELFPAY | END 2017-06-04 23:02 | disposition home or self-care (01) | LOC: HBO 00:24 | PROC: 5A05221 Extracorporeal Hyperbaric Oxygenation, Continuous (ICD-10-PCS; principal; 2017-06-04) | DX: S91.302A Unspecified open wound, left foot, initial encounter (principal) | CPT/HCPCS: 82947; G0277 ==

== ENCOUNTER 2017-06-06 00:07 | Day surgery (SDC) | payer OTHER, SELFPAY | END 2017-06-06 22:41 | disposition home or self-care (01) | LOC: HBO | PROC: 5A05221 Extracorporeal Hyperbaric Oxygenation, Continuous (ICD-10-PCS; principal; 2017-06-06) | DX: E11.621 Type 2 diabetes mellitus with foot ulcer (principal); S91.302A Unspecified open wound, left foot, initial encounter | CPT/HCPCS: 82947; G0277 ==

== ENCOUNTER 2017-06-06 00:11 | Day surgery (SDC) | payer OTHER, SELFPAY | END 2017-06-06 22:41 | disposition home or self-care (01) | LOC: WOUND | DX: Z48.00 Encounter for change or removal of nonsurgical wound dressing (principal); E11.621 Type 2 diabetes mellitus with foot ulcer; S91.302A Unspecified open wound, left foot, initial encounter | CPT/HCPCS: G0463 ==

== ENCOUNTER 2017-06-13 10:15 | Day surgery (SDC) | payer OTHER, SELFPAY | END 2017-06-13 15:45 | disposition home or self-care (01) | LOC: WOUND 10:15 | DX: Z48.00 Encounter for change or removal of nonsurgical wound dressing (principal); E11.621 Type 2 diabetes mellitus with foot ulcer; L97.422 Non-pressure chronic ulcer of left heel and midfoot with fat layer exposed; S91.302A Unspecified open wound, left foot, initial encounter | CPT/HCPCS: G0463 ==

== ENCOUNTER 2017-06-17 09:00 | Day surgery (SDC) | payer OTHER, SELFPAY | END 2017-06-17 12:08 | disposition home or self-care (01) | LOC: WOUND 09:00 | PROC: 0HBNXZZ Excision of Left Foot Skin, External Approach (ICD-10-PCS; principal; 2017-06-17) | DX: E11.621 Type 2 diabetes mellitus with foot ulcer (principal); F17.210 Nicotine dependence, cigarettes, uncomplicated; J44.9 Chronic obstructive pulmonary disease, unspecified; G47.30 Sleep apnea, unspecified; L97.422 Non-pressure chronic ulcer of left heel and midfoot with fat layer exposed; E11.622 Type 2 diabetes mellitus with other skin ulcer; L97.828 Non-pressure chronic ulcer of other part of left lower leg with other specified severity ==

== ENCOUNTER 2017-06-24 09:00 | Day surgery (SDC) | payer OTHER, SELFPAY | END 2017-06-24 22:44 | disposition home or self-care (01) | LOC: WOUND 09:00 | DX: Z48.00 Encounter for change or removal of nonsurgical wound dressing (principal); E11.621 Type 2 diabetes mellitus with foot ulcer; S91.302A Unspecified open wound, left foot, initial encounter; L97.429 Non-pressure chronic ulcer of left heel and midfoot with unspecified severity | CPT/HCPCS: G0463 ==

== ENCOUNTER 2017-07-01 09:06 | Day surgery (SDC) | payer OTHER, SELFPAY | END 2017-07-01 22:56 | disposition home or self-care (01) | LOC: WOUND 09:06 | PROC: 0HBLXZZ Excision of Left Lower Leg Skin, External Approach (ICD-10-PCS; principal; 2017-07-01) | PROC: 0HBNXZZ Excision of Left Foot Skin, External Approach (ICD-10-PCS; principal; 2017-07-01) | DX: E11.621 Type 2 diabetes mellitus with foot ulcer (principal); L97.422 Non-pressure chronic ulcer of left heel and midfoot with fat layer exposed; E11.622 Type 2 diabetes mellitus with other skin ulcer; L97.829 Non-pressure chronic ulcer of other part of left lower leg with unspecified severity ==

== ENCOUNTER 2017-07-08 09:12 | Day surgery (SDC) | payer OTHER, SELFPAY | END 2017-07-08 11:16 | disposition home or self-care (01) | LOC: WOUND 09:12 | PROC: 0HBLXZZ Excision of Left Lower Leg Skin, External Approach (ICD-10-PCS; principal; 2017-07-08) | PROC: 0HBNXZZ Excision of Left Foot Skin, External Approach (ICD-10-PCS; principal; 2017-07-08) | DX: E11.621 Type 2 diabetes mellitus with foot ulcer (principal); E11.622 Type 2 diabetes mellitus with other skin ulcer; F17.210 Nicotine dependence, cigarettes, uncomplicated; G47.30 Sleep apnea, unspecified; L97.422 Non-pressure chronic ulcer of left heel and midfoot with fat layer exposed; L97.829 Non-pressure chronic ulcer of other part of left lower leg with unspecified severity ==

== ENCOUNTER 2017-07-22 09:15 | Day surgery (SDC) | payer OTHER, SELFPAY | END 2017-07-22 10:41 | disposition home or self-care (01) | LOC: WOUND 09:15 | DX: Z48.00 Encounter for change or removal of nonsurgical wound dressing (principal); E11.621 Type 2 diabetes mellitus with foot ulcer; S91.302A Unspecified open wound, left foot, initial encounter | CPT/HCPCS: G0463 ==

== ENCOUNTER 2017-07-29 13:15 | Day surgery (SDC) | payer OTHER, SELFPAY | END 2017-07-29 14:57 | disposition home or self-care (01) | LOC: WOUND 13:15 | DX: Z48.00 Encounter for change or removal of nonsurgical wound dressing (principal); E11.621 Type 2 diabetes mellitus with foot ulcer; S91.302A Unspecified open wound, left foot, initial encounter; L97.429 Non-pressure chronic ulcer of left heel and midfoot with unspecified severity | CPT/HCPCS: G0463 ==

== ENCOUNTER 2017-08-26 10:15 | Day surgery (SDC) | payer OTHER | END 2017-08-26 12:12 | disposition home or self-care (01) | LOC: WOUND 10:15 | DX: Z48.00 Encounter for change or removal of nonsurgical wound dressing (principal); E11.621 Type 2 diabetes mellitus with foot ulcer; L97.429 Non-pressure chronic ulcer of left heel and midfoot with unspecified severity; S91.302A Unspecified open wound, left foot, initial encounter; I73.9 Peripheral vascular disease, unspecified; E11.622 Type 2 diabetes mellitus with other skin ulcer; L97.922 Non-pressure chronic ulcer of unspecified part of left lower leg with fat layer exposed; L97.322 Non-pressure chronic ulcer of left ankle with fat layer exposed; L97.222 Non-pressure chronic ulcer of left calf with fat layer exposed; F17.290 Nicotine dependence, other tobacco product, uncomplicated; G47.30 Sleep apnea, unspecified; J44.9 Chronic obstructive pulmonary disease, unspecified ==

== ENCOUNTER 2017-09-03 09:30 | Day surgery (SDC) | payer OTHER | END 2017-09-03 10:03 | disposition home or self-care (01) | LOC: WOUND 09:30 | DX: Z48.00 Encounter for change or removal of nonsurgical wound dressing (principal); E11.621 Type 2 diabetes mellitus with foot ulcer; S91.302D Unspecified open wound, left foot, subsequent encounter; F17.210 Nicotine dependence, cigarettes, uncomplicated; G47.30 Sleep apnea, unspecified; J44.9 Chronic obstructive pulmonary disease, unspecified | CPT/HCPCS: G0463 ==

== ENCOUNTER 2018-02-01 16:18 | Inpatient (IN) | payer OTHER, SELFPAY ==
[~2018-02-01] VITALS: Ht 198.1 cm; Wt 163.5 kg
[~2018-02-01 16:18] MED LIST changes: -ASCO500 PO; -AZIT250 PO; -ELIQUIS5 MG PO; -LIDO700A20 TOP; -PRED10 PO; -Vitamin B Comple1 EA PO
[2018-02-01] MEDS ORDERED: ASCO500 PO (21:16)
[2018-02-01] MEDS ORDERED: Vitamin B Comple1 EA PO (21:17)
[2018-02-01 22:05] LABS: Creatine Kinase MB 1.3 ng/mL (0.0-3.6); Creatine Kinase MB Index 1.4 (0.0-4.0); Troponin I 0.018 ng/mL (0.000-0.040)
[2018-02-01 22:07] LABS: Thyroid Stimulating Hormone 0.762 uIU/mL (0.360-4.800)
[2018-02-02 05:15] LABS: BASOPHILS PERCENT AUTO 0 % (0-2); EOSINOPHILS PERCENT AUTO 0 % (0-6); Hematocrit 43.1 % (37.0-53.0); IMMATURE GRAN ABSOLUTE AUTO 0.02 K/mm3 (0.00-0.10); IMMATURE GRAN PERCENT AUTO 0 % (0-1); LYMPHOCYTES ABSOLUTE AUTO 0.51 K/mm3 (0.84-5.20); LYMPHOCYTES PERCENT AUTO 10 % (21-46); MONOCYTES ABSOLUTE AUTO 0.12 K/mm3 (0.16-1.47); MONOCYTES PERCENT AUTO 2 % (4-13); Mean Corpuscular HGB 31.5 pg (26.0-34.0); Mean Corpuscular HGB Conc 32.5 g/dL (31.5-36.5); Mean Platelet Volume 12.2 fL (9.1-12.4); NEUTROPHILS ABSOLUTE AUTO 4.26 K/mm3 (1.96-9.15); NEUTROPHILS PERCENT AUTO 87 % (41-73); Platelet Count 106 K/mm3 (150-400); RDW Coefficient Variation 13.2 % (11.7-14.2); RDW Standard Deviation 46.5 fL (35.1-46.3); Red Blood Cell Count 4.44 M/mm3 (4.30-5.90); White Blood Cell Count 4.91 K/mm3 (4.00-11.30)
[2018-02-02 05:18] LABS: Mean Corpuscular Volume 97 fL (80-100)
[2018-02-02 05:33] LABS: Anion Gap 9 mmol/L (6-16); Blood Urea Nitrogen 14 mg/dL (8-24); Bun/Creatinine Ratio 17.5 (12.0-20.0); CO2, Blood 25 mmol/L (21-32); CPK Creatine Kinase 84 U/L (39-308); Calcium, Blood 8.7 mg/dL (8.5-10.1); Chloride, Blood 103 mmol/L (98-108); Creatine Kinase MB 1.3 ng/mL (0.0-3.6); Creatine Kinase MB Index 1.5 (0.0-4.0); Glomerular Filtration Rate >60 (60-); Glucose, Blood 205 mg/dL (70-99); Magnesium, Blood 2.2 mg/dL (1.6-2.4); Potassium, Blood 4.3 mmol/L (3.5-5.5); Sodium, Blood 137 mmol/L (136-145); Troponin I 0.017 ng/mL (0.000-0.040)
[2018-02-03] MEDS ORDERED: PRED10 PO (14:01)
[2018-02-03] MEDS ORDERED: AZIT250 PO (14:01)
[2018-02-03] MEDS ORDERED: ELIQUIS5 MG PO (14:02)
== END 2018-02-03 15:55 | disposition home or self-care (01) | DRG 191 ==
LOC: ER 16:18 → MEDS 16:19 → ENPENDDIS 02-03 13:37 → MEDS 02-03 15:55
PROVIDERS: Internal Medicine
DX: J44.0 Chronic obstructive pulmonary disease with (acute) lower respiratory infection (principal); I50.32 Chronic diastolic (congestive) heart failure; I48.91 Unspecified atrial fibrillation; J44.1 Chronic obstructive pulmonary disease with (acute) exacerbation; J20.9 Acute bronchitis, unspecified; G47.33 Obstructive sleep apnea (adult) (pediatric); I27.20 Pulmonary hypertension, unspecified; I11.0 Hypertensive heart disease with heart failure; E78.5 Hyperlipidemia, unspecified; M10.9 Gout, unspecified; E11.42 Type 2 diabetes mellitus with diabetic polyneuropathy; Z79.4 Long term (current) use of insulin; E66.01 Morbid (severe) obesity due to excess calories; F17.210 Nicotine dependence, cigarettes, uncomplicated
CPT/HCPCS: 36415; 80048; 82550; 82553; 82947; 83735; 84100; 84443; 84484; 85025; 87081; 93005; 93010; 93306; 94640; 94761; 94762; 96365; 96366; 96375; 96376; 99285-25; J0456; J1650; J2930; J3475; J7050

== ENCOUNTER → 2018-02-01 | Outpatient (CLI) | payer OTHER, SELFPAY ==
[~2018-02-01] MED LIST changes: +ASCO500 PO; +AZIT250 PO; +ELIQUIS5 MG PO; +LIDO700A20 TOP; +PRED10 PO; +Vitamin B Comple1 EA PO
[2018-02-01 14:13] LABS: BASOPHILS ABSOLUTE AUTO 0.03 K/mm3 (0.00-0.23); BASOPHILS PERCENT AUTO 1 % (0-2); EOSINOPHILS ABSOLUTE AUTO 0.16 K/mm3 (0.00-0.68); EOSINOPHILS PERCENT AUTO 3 % (0-6); Hematocrit 42.1 % (37.0-53.0); Hemoglobin 14.3 g/dL (13.5-17.5); IMMATURE GRAN ABSOLUTE AUTO 0.01 K/mm3 (0.00-0.10); IMMATURE GRAN PERCENT AUTO 0 % (0-1); LYMPHOCYTES ABSOLUTE AUTO 0.91 K/mm3 (0.84-5.20); LYMPHOCYTES PERCENT AUTO 18 % (21-46); MONOCYTES PERCENT AUTO 10 % (4-13); Mean Corpuscular HGB 31.6 pg (26.0-34.0); Mean Corpuscular Volume 93 fL (80-100); Mean Platelet Volume 11.9 fL (9.1-12.4); NEUTROPHILS ABSOLUTE AUTO 3.48 K/mm3 (1.96-9.15); NEUTROPHILS PERCENT AUTO 68 % (41-73); Platelet Count 124 K/mm3 (150-400); RDW Coefficient Variation 13.3 % (11.7-14.2); Red Blood Cell Count 4.52 M/mm3 (4.30-5.90); White Blood Cell Count 5.09 K/mm3 (4.00-11.30)
[2018-02-01 14:19] LABS: Anion Gap 13 mmol/L (6-16); Blood Urea Nitrogen 13 mg/dL (8-24); Bun/Creatinine Ratio 13.1 (12.0-20.0); CO2, Blood 23 mmol/L (21-32); Chloride, Blood 104 mmol/L (98-108); Creatinine, Blood 0.99 mg/dL (0.60-1.20); Glomerular Filtration Rate >60 (60-); Glucose, Blood 128 mg/dL (70-99); Potassium, Blood 3.8 mmol/L (3.5-5.5); Sodium, Blood 140 mmol/L (136-145)
== END | disposition home or self-care (01) ==
LOC: LAB EV 14:09 → LAB SHORT 14:09
PROVIDERS: Physician Assistant Surgical
DX: J44.1 Chronic obstructive pulmonary disease with (acute) exacerbation (principal)
CPT/HCPCS: 80048; 83880; 84484; 85025; 85379

== ENCOUNTER → 2018-06-24 | Outpatient (CLI) | payer OTHER ==
[~2018-06-24] MED LIST changes: +ASCO500 PO; +AZIT250 PO; +ELIQUIS5 MG PO; +LIDO700A20 TOP; +PRED10 PO; +Vitamin B Comple1 EA PO
[2018-06-24 08:02] LABS: BASOPHILS ABSOLUTE AUTO 0.11 K/mm3 (0.00-0.23); BASOPHILS PERCENT AUTO 1 % (0-2); EOSINOPHILS ABSOLUTE AUTO 0.93 K/mm3 (0.00-0.68); EOSINOPHILS PERCENT AUTO 10 % (0-6); Hematocrit 52.8 % (37.0-53.0); Hemoglobin 17.8 g/dL (13.5-17.5); IMMATURE GRAN ABSOLUTE AUTO 0.03 K/mm3 (0.00-0.10); IMMATURE GRAN PERCENT AUTO 0 % (0-1); LYMPHOCYTES ABSOLUTE AUTO 1.84 K/mm3 (0.84-5.20); LYMPHOCYTES PERCENT AUTO 19 % (21-46); MONOCYTES PERCENT AUTO 6 % (4-13); Mean Corpuscular HGB 30.7 pg (26.0-34.0); Mean Corpuscular HGB Conc 33.7 g/dL (31.5-36.5); Mean Corpuscular Volume 91 fL (80-100); Mean Platelet Volume 12.1 fL (9.1-12.4); NEUTROPHILS ABSOLUTE AUTO 6.13 K/mm3 (1.96-9.15); NEUTROPHILS PERCENT AUTO 64 % (41-73); Platelet Count 138 K/mm3 (150-400); RDW Coefficient Variation 13.8 % (11.7-14.2); RDW Standard Deviation 45.6 fL (35.1-46.3); White Blood Cell Count 9.64 K/mm3 (4.00-11.30)
[2018-06-24 08:17] LABS: Albumin, Blood 4.1 g/dL (3.4-5.0); Bun/Creatinine Ratio 16.5 (12.0-20.0); Calcium, Blood 9.3 mg/dL (8.5-10.1); Creatinine, Blood 1.27 mg/dL (0.60-1.20); Globulin, Blood 4.1 g/dL (2.2-4.0); Potassium, Blood 3.8 mmol/L (3.5-5.5); Total Protein, Blood 8.2 g/dL (6.4-8.2)
[2018-06-24 08:50] LABS: Troponin I 0.051 ng/mL (0.000-0.040)
== END | disposition home or self-care (01) ==
LOC: LAB SHORT 07:57 → LAB EV 07:57
PROVIDERS: Physician Assistant Medical
DX: R06.02 Shortness of breath (principal); R06.2 Wheezing
CPT/HCPCS: 80053; 83880; 84484; 85025

== ENCOUNTER 2018-10-10 07:25 | Day surgery (SDC) | payer OTHER ==
[~2018-10-10 07:25] MED LIST changes: -ALLO100 PO; +ALLO300 PO; -PRAV20 PO; +PRAVASTATIN SOD10 MG PO
== END 2018-10-10 23:10 | disposition home or self-care (01) ==
LOC: WOUND 07:25
DX: E11.622 Type 2 diabetes mellitus with other skin ulcer (principal); L97.221 Non-pressure chronic ulcer of left calf limited to breakdown of skin; E11.40 Type 2 diabetes mellitus with diabetic neuropathy, unspecified; I10 Essential (primary) hypertension; G47.33 Obstructive sleep apnea (adult) (pediatric); Z87.891 Personal history of nicotine dependence
CPT/HCPCS: G0463

== ENCOUNTER 2018-10-16 00:16 | Day surgery (SDC) | payer OTHER | END 2018-10-16 22:44 | disposition home or self-care (01) | LOC: WOUND 00:16 | DX: E11.622 Type 2 diabetes mellitus with other skin ulcer (principal); L97.821 Non-pressure chronic ulcer of other part of left lower leg limited to breakdown of skin; I10 Essential (primary) hypertension; M19.90 Unspecified osteoarthritis, unspecified site; G47.33 Obstructive sleep apnea (adult) (pediatric); Z87.891 Personal history of nicotine dependence | CPT/HCPCS: G0463 ==

== ENCOUNTER 2018-10-29 11:13 | Inpatient (IN) | payer OTHER ==
[~2018-10-29] VITALS: Ht 198.1 cm; Wt 159.8 kg
[~2018-10-29 11:13] MED LIST changes: -ALBU2.5V5 INH; -ALBU3IS INH; -ALBU90OI PO; -CYCL10 PO; -FURO40 PO; -LANOXIN125 MCG PO; -LOSA25 PO; -METO50ER PO; -POTA10T PO; -Robaxin750 MG PO; -TIOT18 INH; -TORSE20 PO
[2018-10-29 11:33] LABS: BASOPHILS ABSOLUTE AUTO 0.05 K/mm3 (0.00-0.23); BASOPHILS PERCENT AUTO 1 % (0-2); EOSINOPHILS ABSOLUTE AUTO 0.11 K/mm3 (0.00-0.68); EOSINOPHILS PERCENT AUTO 1 % (0-6); Hematocrit 43.9 % (37.0-53.0); Hemoglobin 14.5 g/dL (13.5-17.5); IMMATURE GRAN ABSOLUTE AUTO 0.03 K/mm3 (0.00-0.10); IMMATURE GRAN PERCENT AUTO 0 % (0-1); LYMPHOCYTES ABSOLUTE AUTO 1.96 K/mm3 (0.84-5.20); LYMPHOCYTES PERCENT AUTO 25 % (21-46); MONOCYTES ABSOLUTE AUTO 0.68 K/mm3 (0.16-1.47); MONOCYTES PERCENT AUTO 9 % (4-13); Mean Corpuscular HGB 31.4 pg (26.0-34.0); Mean Corpuscular Volume 95 fL (80-100); Mean Platelet Volume 12.2 fL (9.1-12.4); NEUTROPHILS ABSOLUTE AUTO 5.07 K/mm3 (1.96-9.15); NEUTROPHILS PERCENT AUTO 64 % (41-73); Platelet Count 120 K/mm3 (150-400); RDW Coefficient Variation 14.4 % (11.7-14.2); RDW Standard Deviation 49.7 fL (35.1-46.3); Red Blood Cell Count 4.62 M/mm3 (4.30-5.90)
[2018-10-29] MEDS ORDERED: Robaxin750 MG PO (11:40)
[2018-10-29] MEDS ORDERED: LIDO700A20 TOP (11:40)
[2018-10-29] MEDS ORDERED: TIOT18 INH (11:40)
[2018-10-29] MEDS ORDERED: POTA10T PO (11:40)
[2018-10-29] MEDS ORDERED: GABA100 PO (11:41)
[2018-10-29] MEDS ORDERED: TRAZ100 PO (11:41)
[2018-10-29] MEDS ORDERED: FURO40 PO (11:41)
[2018-10-29] MEDS ORDERED: ALBU2.5V5 INH (11:42)
[2018-10-29] MEDS ORDERED: ALBU90OI PO (11:42)
[2018-10-29 12:18] LABS: Alanine Aminotransfer (ALT/SGP 25 U/L (12-78); Albumin, Blood 3.3 g/dL (3.4-5.0); Alk Phos 179 U/L (50-136); Anion Gap 9 mmol/L (6-16); Aspartate Aminotrans (AST/SGOT 20 U/L (12-37); Bilirubin, Total 0.9 mg/dL (0.1-1.0); Blood Urea Nitrogen 17 mg/dL (8-24); Bun/Creatinine Ratio 14.3 (12.0-20.0); CO2, Blood 25 mmol/L (21-32); Calcium, Blood 8.9 mg/dL (8.5-10.1); Chloride, Blood 107 mmol/L (98-108); Creatinine, Blood 1.19 mg/dL (0.60-1.20); Globulin, Blood 3.3 g/dL (2.2-4.0); Glomerular Filtration Rate >60 (60-); Glucose, Blood 158 mg/dL (70-99); Potassium, Blood 3.9 mmol/L (3.5-5.5); Sodium, Blood 141 mmol/L (136-145); Total Protein, Blood 6.6 g/dL (6.4-8.2)
--- NOTE | 2018-10-29 17:59 | NUR ---
ADMIT NOTE RECEIVED REPORT FROM TANYA CASTANEDA IN ED. PT TO ROOM VIA [facility]O AT 1540, SBA TRANSFER TO BED. PT ORIENTED TO ROOM AND CALL LIGHT. PT EDUCATED ON FALL RISK AND TO CALL FOR ASSISTANCE PRIOR TO GETTING UP. PT REPORTS SOB STARTED APPROX 3 DAYS AGO, PT REPORTS THAT THEY HAD BEEN CAMPING PRIOR TO THE SOB. PT A&Ox4. CALM AND COOPERATIVE WITH CARE. PT RESTING IN FOWLERS POSITION, SOB AT REST AND INCREASED WITH EXERTION, PT SPEAKIN IN 1-3 WORDS PER BREATH UPON ADMISSION, THIS EVENING PT SPEAKING FULL SENTENCES. PT SPO2 >92% ON RA. PT HAS NON-PRODUCTIVE COUGHT. LS EXPIRATORY WHEEZING T/O. PT REPORTS BACK PAIN, REPOSITION HELPS, DENEIS NEEDS FOR MEDICATIONS. PT DENIES NAUSEA, HAS GOOD APPETITE. PT RECEIVING IV STEROIDS, LASIX AND ANTIBIOTICS. VSS. NO OTHER ACUTE CHANGES DURING SHIFT. WILL CONTINUE TO MONITOR UNTIL REPORT GIVEN TO ONCOMING RN.
--- NOTE | 2018-10-29 20:05 | NUR ---
PCU NIGHTSHIFT ASSUMED CARE OF PT APPROX. 1900. PT A&OX4. ASSESSMENT COMPLETED. PT VITAL SIGNS STABLE. HEART RHYTHM A.FIB AVERAGING 110'S AT THIS TIME. PT REPORTS HIS SHORTNESS OF BREATH HAS IMPROVED SINCE HE ARRIVED TO HOSPITAL BUT STATES IT IS NOT TO HIS BASELINE. PT ON ROOM AIR WITH SATS IN 90'S. PT REPORTS CHRONIC BLE NEUROPATHY. BILATERAL FEET COOL TO TOUCH. BED IN LOW POSITION, CALL LIGHT IN REACH AND PT DENIES ANY NEEDS. WILL CONTINUE TO MONITOR.
[2018-10-30 04:21] LABS: BASOPHILS ABSOLUTE AUTO 0.01 K/mm3 (0.00-0.23); BASOPHILS PERCENT AUTO 0 % (0-2); EOSINOPHILS ABSOLUTE AUTO 0.01 K/mm3 (0.00-0.68); EOSINOPHILS PERCENT AUTO 0 % (0-6); Hematocrit 44.8 % (37.0-53.0); Hemoglobin 14.5 g/dL (13.5-17.5); IMMATURE GRAN ABSOLUTE AUTO 0.02 K/mm3 (0.00-0.10); IMMATURE GRAN PERCENT AUTO 0 % (0-1); LYMPHOCYTES ABSOLUTE AUTO 0.76 K/mm3 (0.84-5.20); LYMPHOCYTES PERCENT AUTO 11 % (21-46); MONOCYTES ABSOLUTE AUTO 0.15 K/mm3 (0.16-1.47); MONOCYTES PERCENT AUTO 2 % (4-13); Mean Corpuscular HGB Conc 32.4 g/dL (31.5-36.5); Mean Corpuscular Volume 96 fL (80-100); Mean Platelet Volume 12.6 fL (9.1-12.4); NEUTROPHILS PERCENT AUTO 87 % (41-73); Platelet Count 102 K/mm3 (150-400); RDW Coefficient Variation 14.3 % (11.7-14.2); RDW Standard Deviation 49.7 fL (35.1-46.3); Red Blood Cell Count 4.67 M/mm3 (4.30-5.90); White Blood Cell Count 7.05 K/mm3 (4.00-11.30)
[2018-10-30 04:43] LABS: Anion Gap 9 mmol/L (6-16); Blood Urea Nitrogen 23 mg/dL (8-24); Bun/Creatinine Ratio 20.5 (12.0-20.0); CO2, Blood 26 mmol/L (21-32); Calcium, Blood 9.3 mg/dL (8.5-10.1); Chloride, Blood 102 mmol/L (98-108); Creatinine, Blood 1.12 mg/dL (0.60-1.20); Glomerular Filtration Rate >60 (60-); Glucose, Blood 258 mg/dL (70-99); Magnesium, Blood 1.8 mg/dL (1.6-2.4); Potassium, Blood 4.2 mmol/L (3.5-5.5); Sodium, Blood 137 mmol/L (136-145); Troponin I 0.025 ng/mL (0.000-0.040)
--- NOTE | 2018-10-30 05:00 | NUR ---
SHIFT SUMMARY PT PLEASANT, COOPERATIVE AND USES CALL LIGHT APPROPRIATELY. PT REMAINS A&OX4. VITAL SINGS REMAIN STABLE. HEART RHYTHM REMAINS A. FIB WITH HEART RATE RANGING FROM 90'S TO 130'S. PT ABLE TO SLEEP MOST OF SHIFT AND WORE CPAP MACHINE WHILE ASLEEP. PT ABLE TO AMUBALTE TO BATHROOM NEEDED AND TOLERATED WELL. PT CONTINUES TO HAVE PRODUCTIVE COUGH THAT PRODUCES CLEAR, FROTHY SPPUTUM. PT SITTING AT MAGNETIC PROSPECTING SUPERVISOR OF BED AT THIS TIME. BED IN LOW POSITION, CALL LIGHT IN REACH AND PT DENIES ANY NEEDS. WILL CONTINUE TO MOINTOR UNTIL HANDOFF TO DAYSHIFT RN.
--- NOTE | 2018-10-30 08:20 | NUR ---
Pt education was done regarding fluid restriction and heart failure. The pt had no idea that he shouldn't be drinking lots of fluids. States that he drinks lots of water normally. Noted he drank 700cc water since 1900 yesterday.
--- NOTE | 2018-10-30 09:42 | NUR ---
Echocardiogram complete.
--- NOTE | 2018-10-30 14:34 | NUR ---
Francis is sitting on the chair, states that he is feeling well. Earlier today during th echocardiogram, I walked in on the tail end of it, he was audibly wheezing loudly, red in the face and dyspneic. Stated that he could not lie down on his back without having difficulty breathing. I immediately assisted him up to a sitting position and the difficulty resolved. At this time, his lung sounds are clear except for expiratory wheeze heard in the right lower lobe, auscultated in the superior area of his posterior chest. SpO2 96 % on room air, respiratory rate i 18/min.
--- NOTE | 2018-10-30 16:06 | NUR ---
Advance Directive Education/Spiritual Care visit conducted. Patient requested information on advance directives so I explained the purpose and process and handed patient a advance directive booklet. I walked patient through the sections and explained about the witness signing. Patient expressed gratitude and said he will follow through with it. I also talked with patient and family about their spiritual journey. I listen empathically, reinforced helpful attitudes and practices and provided a calming presence. Patient and family expressed gratitude for the visit.
[2018-10-31 04:28] LABS: BASOPHILS ABSOLUTE AUTO 0.01 K/mm3 (0.00-0.23); BASOPHILS PERCENT AUTO 0 % (0-2); EOSINOPHILS ABSOLUTE AUTO 0.01 K/mm3 (0.00-0.68); EOSINOPHILS PERCENT AUTO 0 % (0-6); Hematocrit 45.8 % (37.0-53.0); Hemoglobin 14.7 g/dL (13.5-17.5); IMMATURE GRAN ABSOLUTE AUTO 0.06 K/mm3 (0.00-0.10); IMMATURE GRAN PERCENT AUTO 0 % (0-1); LYMPHOCYTES ABSOLUTE AUTO 1.68 K/mm3 (0.84-5.20); LYMPHOCYTES PERCENT AUTO 11 % (21-46); MONOCYTES ABSOLUTE AUTO 0.98 K/mm3 (0.16-1.47); MONOCYTES PERCENT AUTO 6 % (4-13); Mean Corpuscular HGB 30.8 pg (26.0-34.0); Mean Corpuscular HGB Conc 32.1 g/dL (31.5-36.5); Mean Corpuscular Volume 96 fL (80-100); Mean Platelet Volume 12.9 fL (9.1-12.4); NEUTROPHILS ABSOLUTE AUTO 12.53 K/mm3 (1.96-9.15); NEUTROPHILS PERCENT AUTO 82 % (41-73); Platelet Count 125 K/mm3 (150-400); RDW Coefficient Variation 14.4 % (11.7-14.2); RDW Standard Deviation 50.2 fL (35.1-46.3); Red Blood Cell Count 4.77 M/mm3 (4.30-5.90); White Blood Cell Count 15.27 K/mm3 (4.00-11.30)
[2018-10-31 04:48] LABS: Albumin, Blood 3.4 g/dL (3.4-5.0); Anion Gap 8 mmol/L (6-16); Blood Urea Nitrogen 34 mg/dL (8-24); Bun/Creatinine Ratio 27.9 (12.0-20.0); CO2, Blood 28 mmol/L (21-32); Calcium, Blood 9.2 mg/dL (8.5-10.1); Chloride, Blood 102 mmol/L (98-108); Creatinine, Blood 1.22 mg/dL (0.60-1.20); Glomerular Filtration Rate >60 (60-); Glucose, Blood 192 mg/dL (70-99); Phosphorus, Blood 4.3 mg/dL (2.5-4.9); Potassium, Blood 4.3 mmol/L (3.5-5.5); Sodium, Blood 138 mmol/L (136-145)
--- NOTE | 2018-10-31 06:24 | NUR ---
PATIENT INDEPENDENT IN ROOM. PATIENT COUGHING FREQUENTLY AND BRINGING UP THICK BROWN MUCOUS. PATIENT HAVING DIFFICULTLY LAYING BACK FLAT IN THE BED. EVERY TIME HE TRIED IT WOULD CAUSE HIM TO HAVE A COUGHING FIT. PATIENT HEART RATE 100-120 AT REST. PATIENT WAS UP TO 140'S WHEN HE WAS IN THE BATHROOM. PATIENT HAD ONE EPISODE THIS MORNING WHERE HE WAS UP TO 160'S FOR A MINUTE WHILE IN THE BATHROOM. PATIENT DENIED IN SYMPTOMS AT THE TIME OF EVENT, PATIENT WAS SITTING ON THE TOILET. PATIENT DENIES ANY PAIN. PATIENT STATES HE IS FEELING BETTER. PATIENT COMPLAINED OF BEING COLD DURING THE NIGHT WHICH IS VERY UNSUAL FOR HIM.
--- NOTE | 2018-10-31 07:35 | NUR ---
PT SITTING UP IN CHAIR STATED ANY TIME HE LAYS BACK HE FEELS LIKE HE STOPS BREATHING FEELS LIKE HE CAN'T BREATH IN VS BREATHING OUT NO CP DURING BUT FEELS DIZZY AND COLD STATED HE JUST SITS UP AND IT RESOLVES
--- NOTE | 2018-10-31 10:02 | NUR ---
dr navarro by to see pt stated he told him that he may take him off some of the medications unsure which ones prior to dr navarro going to visit the pt discussed symptoms with him
--- NOTE | 2018-10-31 11:41 | NUR ---
dR AVELAR CALLED FOR CARDIOLOGY CONSULT TO REVIEW PT AND MEDS
--- NOTE | 2018-10-31 12:28 | NUR ---
DR AVELAR BY TO SEE PT
--- NOTE | 2018-10-31 13:29 | NUR ---
Patient is sitting on a chair and alert. Patient tells me that "they" are trying to work out his medications but he is anxious to go home. Patient shares about his family unit complications, his readiness to go home to "be with Naseem" and about how proud he is of his son. I listen empathically and provide companionship and pastoral psychotherapist counselor. Patient responds well and shows signs of an elevated mmod.
--- NOTE | 2018-10-31 13:38 | NUR ---
pt sleeping wakes to verbal stimuli pt iv meds changed to bumex also put on iv dose of dig, oral aldactone and dec his dose of cozaar to 25 mg at bedtime pt asked if he will see a bean picker machine operator out pt stated we will ask dr ovalle when he rounds again discussed with pt that he prob will
--- NOTE | 2018-10-31 14:55 | NUR ---
pt sitting up in chair talking on the phone
[2018-10-31 19:21] LABS: Magnesium, Blood 1.8 mg/dL (1.6-2.4); Potassium, Blood 4.3 mmol/L (3.5-5.5)
--- NOTE | 2018-10-31 19:40 | NUR ---
CARE ASSUMPTION PT A&O X4. VSS. MONITOR SHOWS AFIB, HR 95-115. WILL CONTINUE TO MONITOR AND PROVIDE CARE.
--- NOTE | 2018-11-01 04:27 | NUR ---
SHIFT SUMMARY PT A&O X4. VSS. MONITOR SHOWS AFIB, HR 70-110 W/ NONSUSTAINED HR INCREASE TO 130'S W/ AMBULATION TO BATHROOM. PT REPORTS IMPROVEMENT IN BREATHING AND AMBULATION TOLERANCE. PT VOIDING WELL. WILL CONTINUE TO MONITOR AND PROVIDE CARE UNTIL REPORT OFF TO DAY SHIFT RN.
[2018-11-01 05:11] LABS: Bun/Creatinine Ratio 31.1 (12.0-20.0); Calcium, Blood 9.3 mg/dL (8.5-10.1); Creatinine, Blood 1.32 mg/dL (0.60-1.20); Potassium, Blood 4.1 mmol/L (3.5-5.5)
--- NOTE | 2018-11-01 08:00 | NUR ---
PT SITTING UP IN THE CHAIR EATING BREAKFAST, A/OX3, PLEASANT AND COOPERATIVE WITH CARE, FOLLOWS COMMANDS WELL, DENIES PAIN, REPORTS A PRODUCTIVE COUGH, HAS BEEN VERY HARSH, LUNGS HAVE EXP WHEEZING T/O, RESP EVEN AND UNLABORED, IS CURRENTLY ON R/A, WAS ON CPAP ALL NIGHT, HRIRR, DISTANT SOUNDS, TELE IN PLACE RUNNING AFIB PER MONITOR, SEE STRIP, TRACE EDEMA NOTED TO B/L ANKLES, PT HAS HAD COMPRESSION STOCKING IN PLACE, PPP+2, CAP REFILL <3SEC, VS STABLE, AFEBRILE, IV SITE IS CLEAR AND PATENT, TO HOANG S.LMassimo BTX4, HE REPORTS NO BM FOR SEVERAL DAYS AND NORMALLY GOES DAILY, GAVE PRUNE JUICE, HE DID HAVE A BM AFTER THAT, VOIDS VIA URINAL WITH OUT DIFF, SKIN HAS SCABS TO KNEES OTHER NAJERA C/W/D, GIL, GALE, CALL LIGHT IN REACH.
--- NOTE | 2018-11-01 12:23 | NUR ---
PT CONTINUES SITTING UP IN CHAIR, STARTED HIM ON MUCINEX, HAS NO COMPLAINTS. NO ACUTE CHANGES, CALL LIGHT IN REACH.
[2018-11-01] MEDS ORDERED: CYCL10 PO (14:47)
--- NOTE | 2018-11-01 16:37 | NUR ---
gave report to Jordon CASTANEDA. pt will be transferred to medical floor via wheelchair, with neuroscience director na in attendence. all belongings went with pt.
--- NOTE | 2018-11-01 19:32 | NUR ---
1900 ASSIMED CARE OF PATIENT, HE IS IN BED WATCHING TV IN GOOD SPIRITS, NO COMPLAINTS OR CONCERNS AT THIS TIME. [facility] SHIFT ASSESSMENT FOR FULL ASSESSMENT. BED IN LOW POSITION, CALL LIGHT IN REACH AND ROOM TIDIED UP. WILLCONTINUE TO OBDULIO.
[2018-11-02 04:23] LABS: Bun/Creatinine Ratio 29.8 (12.0-20.0); Calcium, Blood 9.8 mg/dL (8.5-10.1); Creatinine, Blood 1.24 mg/dL (0.60-1.20); Magnesium, Blood 2.2 mg/dL (1.6-2.4); Potassium, Blood 4.4 mmol/L (3.5-5.5)
--- NOTE | 2018-11-02 05:12 | NUR ---
PATIENT IN BED POST GOING TO BATHROOM INDEPEDENTLY. NO CHANGES IN CONDITION T/O SHIFT. BEAD IN LOW POSITION, ROOM TIDIED AND CALL LIGHT IN REACH. WILL CONTINUE TO MONITOR UNTILL DAY SHIFT HAND OFF.
--- NOTE | 2018-11-02 07:54 | NUR ---
AM NOTE. ASSUMED CARE OF PT APROX 0700. PT IS A&Ox4 AND IND IN THE ROOM. PT WAS ADMITTED FOR HEART FAILURE/PULM EDEMA, PT IS CURRENTLY DIURESING. PT IS CURRENTLY IN AFIB W/BBB IN THE 80'S-100'S. PT'S VS STABLE. L/S EXP WHEEZES T/O AND DIM IN THE BASES. PT IS ON RA WITH O2 SATS >92%. TRACE EDEMA NOTED TO THE PT'S BLE. BT PRESENT AND NORMOACTIVE. PT VOIDS IND IN THE URNINAL. WILL CONTINUE TO MONITOR.
--- NOTE | 2018-11-02 18:18 | NUR ---
SHIFT SUMMARY. NO ACUTE CHANGES NOTED THIS SHIFT. PT HAS BEEN DIURESSING WELL. PT WAS EDUCATED ON SELF RESTRICTING FLUID INTAKE/FLUID BALANCE BECAUSE THE PT WAS ASKING FOR LARGE CUPS OF COFFEE AND ICE WATER MULTIPLE TIMES PER HOUR. PT STATED HIS UNDERSTANDING. PT'S VS HAVE BEEN STABLE T/O SHIFT. PT DENIES ANY CHEST PAIN/PRESSURE, N/V OR INCREASED SOB. PT STATED THAT HE WAS ACTUALLY ABLE TO LAY BACK IN HIS RECLINER CHAIR, WHICH HE HAD BEEN UNABLE TO DO FOR "A LONG TIME." PT IS ON RA WITH O2 SATS >92%. WILL CONTINUE TO MONITOR UNTIL REPORT IS GIVEN TO ONCOMING RN.
[2018-11-03 04:35] LABS: Anion Gap 8 mmol/L (6-16); Blood Urea Nitrogen 40 mg/dL (8-24); Bun/Creatinine Ratio 34.5 (12.0-20.0); CO2, Blood 31 mmol/L (21-32); Calcium, Blood 9.9 mg/dL (8.5-10.1); Chloride, Blood 96 mmol/L (98-108); Creatinine, Blood 1.16 mg/dL (0.60-1.20); Glomerular Filtration Rate >60 (60-); Glucose, Blood 197 mg/dL (70-99); Magnesium, Blood 2.2 mg/dL (1.6-2.4); Potassium, Blood 4.4 mmol/L (3.5-5.5); Sodium, Blood 135 mmol/L (136-145)
--- NOTE | 2018-11-03 05:18 | NUR ---
Shift summary No acute changes this shift. VSS. Pt breathing easy and unlabored while at rest. Pt with episodes of labored breathing and tachypneic with coughing. Pt able to recover independantly and without supplemental oxygen. Pt on CPAP this shift while sleeping. O2 saturations dipping into mid 80's while sleeping, 2.5% bleed in applied to CPAP to maintain o2 saturtaions >90%. Pt able to ambulate to bathroom for voids independantly. Pt with no changes from initial shift assessment, remains alert and oriented and able to make needs known. Pt able to sleep throughout much of this shift. Will continue to provide care per orders until day RN assumes care. Plan for possible discharge today per MD notes.
--- NOTE | 2018-11-03 07:43 | NUR ---
AM NOTE. ASSUMED CARE OF PT APROX 0700. PT IS A&Ox4 AND IND IN THE ROOM. PT'S BREATHING AND L/S HAVE GREATLY IMPROVED FROM YESTERDAY. L/S CLEAR BUT DIM T/O NO COARSENESS OR WHEEZING IS HEARD LIKE YESTERDAY. PER CARDIOLOGY PT CAN D/C HOME. PT HAS BEEN AFIB W/BBB IN THE 90'S-100'S. PT DENIES CHEST PAIN/PRESSURE, N/V OR INCREASED SOB. PT HAS BEEN DIURESING WELL. PT HAS HARSH, HACKING COUGH WITH MOD,THICK WHITE/RICHARD SPUTUM PRODUCTION. CALL LIGHT IN REACH, BED IS LOCKED AND LOW WILL CONTINUE TO MONITOR.
[2018-11-03] MEDS ORDERED: TORSE20 PO (13:49)
[2018-11-03] MEDS ORDERED: LOSA25 PO (13:50)
[2018-11-03] MEDS ORDERED: LANOXIN125 MCG PO (13:53)
[2018-11-03] MEDS ORDERED: ALBU3IS INH (13:53)
[2018-11-03] MEDS ORDERED: METO50ER PO (13:55)
[2018-11-03] MEDS ORDERED: SPIR25 PO (13:57)
[2018-11-03] MEDS ORDERED: GABA100 PO (13:57)
[2018-11-03] MEDS ORDERED: PRED10 PO (14:02)
--- NOTE | 2018-11-03 15:35 | NUR ---
PT D/C. PT WAS D/C'D HOME WITH ALL BELONGINGS. EDUCATION PROVIDED TO PT ABOUT CHF, COPD AND FLUID RESTRICTION. PT'S MEDICATIONS WERE CALLED INTO PT'S PHARMACY OF CHOICE. MEDICATION EDUCATION PROVIDED TO PT. IV WAS REMOVED WNL. PT WAS TAKEN TO CAR VIA W/C. PT DENIES ANY CHEST PAIN/PRESSURE OR N/V.
--- NOTE | 2018-11-03 15:52 | NUR ---
Patient is in the discharge process but still has a few more stories to tell me. I listen empathically, reinforce helpful attitudes and practices, encourage self-care and provide companionship. I also get patient a cup of coffee upon his request. Patient voices appreciation for my visit.
== END 2018-11-03 15:33 | disposition home or self-care (01) | DRG 291 ==
LOC: ER 11:13 → PCU 13:18
PROVIDERS: Emergency Medicine; Internal Medicine Cardiovascular Disease; ADMIT Family Medicine
PROC: 5A09357 Assistance with Respiratory Ventilation, Less than 24 Consecutive Hours, Continuous Positive Airway Pressure (ICD-10-PCS; principal; 2018-10-29)
DX: I11.0 Hypertensive heart disease with heart failure (principal); J96.21 Acute and chronic respiratory failure with hypoxia; J44.1 Chronic obstructive pulmonary disease with (acute) exacerbation; Z68.41 Body mass index [BMI] 40.0-44.9, adult; I50.43 Acute on chronic combined systolic (congestive) and diastolic (congestive) heart failure; E66.01 Morbid (severe) obesity due to excess calories; I48.2 Chronic atrial fibrillation; E11.51 Type 2 diabetes mellitus with diabetic peripheral angiopathy without gangrene; E11.65 Type 2 diabetes mellitus with hyperglycemia; E11.40 Type 2 diabetes mellitus with diabetic neuropathy, unspecified; M10.9 Gout, unspecified; G47.33 Obstructive sleep apnea (adult) (pediatric); I35.0 Nonrheumatic aortic (valve) stenosis; E78.5 Hyperlipidemia, unspecified; I42.9 Cardiomyopathy, unspecified; F17.210 Nicotine dependence, cigarettes, uncomplicated; Z66 Do not resuscitate; Z88.5 Allergy status to narcotic agent; Z88.0 Allergy status to penicillin; Z88.8 Allergy status to other drugs, medicaments and biological substances; Z79.4 Long term (current) use of insulin; Z79.899 Other long term (current) drug therapy; Z79.01 Long term (current) use of anticoagulants; Z79.84 Long term (current) use of oral hypoglycemic drugs
CPT/HCPCS: 36415; 36416; 71045; 80048; 80053; 80069; 82947; 83735; 83880; 84132; 84484; 85025; 93005; 93010; 93306; 94640; 94660; 94664; 94667; 94760; 94762; 96374; 98960; 99285-25; 99406; J0696; J1160; J1940; J2920; J2930

== ENCOUNTER → 2018-10-29 | Outpatient (CLI) | payer OTHER ==
[~2018-10-29] MED LIST changes: +ALBU2.5V5 INH; +ALBU3IS INH; +ALBU90OI PO; +CYCL10 PO; +FURO40 PO; +LANOXIN125 MCG PO; +LOSA25 PO; +METO50ER PO; +POTA10T PO; +Robaxin750 MG PO; +TIOT18 INH; +TORSE20 PO
[2018-10-29 11:12] LABS: BASOPHILS ABSOLUTE AUTO 0.05 K/mm3 (0.00-0.23); BASOPHILS PERCENT AUTO 1 % (0-2); EOSINOPHILS ABSOLUTE AUTO 0.12 K/mm3 (0.00-0.68); EOSINOPHILS PERCENT AUTO 2 % (0-6); Hematocrit 45.3 % (37.0-53.0); IMMATURE GRAN ABSOLUTE AUTO 0.03 K/mm3 (0.00-0.10); IMMATURE GRAN PERCENT AUTO 0 % (0-1); LYMPHOCYTES ABSOLUTE AUTO 1.72 K/mm3 (0.84-5.20); LYMPHOCYTES PERCENT AUTO 22 % (21-46); MONOCYTES ABSOLUTE AUTO 0.71 K/mm3 (0.16-1.47); MONOCYTES PERCENT AUTO 9 % (4-13); Mean Corpuscular HGB 30.8 pg (26.0-34.0); Mean Corpuscular HGB Conc 33.1 g/dL (31.5-36.5); Mean Corpuscular Volume 93 fL (80-100); NEUTROPHILS ABSOLUTE AUTO 5.19 K/mm3 (1.96-9.15); NEUTROPHILS PERCENT AUTO 66 % (41-73); Platelet Count 119 K/mm3 (150-400); RDW Coefficient Variation 14.4 % (11.7-14.2); RDW Standard Deviation 48.8 fL (35.1-46.3); Red Blood Cell Count 4.87 M/mm3 (4.30-5.90); White Blood Cell Count 7.82 K/mm3 (4.00-11.30)
[2018-10-29 11:22] LABS: Albumin, Blood 3.5 g/dL (3.4-5.0); Bilirubin, Total 0.9 mg/dL (0.1-1.0); Bun/Creatinine Ratio 10.1 (12.0-20.0); Calcium, Blood 9.1 mg/dL (8.5-10.1); Creatinine, Blood 1.49 mg/dL (0.60-1.20); Globulin, Blood 3.5 g/dL (2.2-4.0); Potassium, Blood 4.1 mmol/L (3.5-5.5); Troponin I 0.081 ng/mL (0.000-0.040)
== END | disposition home or self-care (01) ==
LOC: LAB EV 10:59 → LAB SHORT 10:59
PROVIDERS: Family Medicine
DX: R06.02 Shortness of breath (principal); R06.00 Dyspnea, unspecified
CPT/HCPCS: 80053; 83880; 84484; 85025

== ENCOUNTER 2019-01-29 07:57 | Day surgery (SDC) | payer OTHER ==
[~2019-01-29] VITALS: Ht 198.1 cm; Wt 165.8 kg
[~2019-01-29 07:57] MED LIST changes: +ALBU2.5V5 INH; +ALBU3IS INH; +ALBU90OI PO; +ALLO100 PO; +CYCL10 PO; +FURO40 PO; +LANOXIN125 MCG PO; +LOSA25 PO; +METO50ER PO; +NEBI10 PO; +POTA10T PO; +Robaxin750 MG PO; +TIOT18 INH; +TORSE20 PO
--- NOTE | 2019-01-29 09:31 | NUR ---
01/29/19 0931 Malia Ponce O2 WITH FACE MASK AT 10L, CO2 MONITORED WITH NASAL CANNULA
== END 2019-01-29 10:40 | disposition home or self-care (01) ==
LOC: ORSCSDS 07:57
PROVIDERS: Surgery
PROC: 0DBK8ZX Excision of Ascending Colon, Via Natural or Artificial Opening Endoscopic, Diagnostic (ICD-10-PCS; principal; 2019-01-29 09:30)
PROC: 0DBM8ZX Excision of Descending Colon, Via Natural or Artificial Opening Endoscopic, Diagnostic (ICD-10-PCS; principal; 2019-01-29 09:30)
PROC: 0DBH8ZX Excision of Cecum, Via Natural or Artificial Opening Endoscopic, Diagnostic (ICD-10-PCS; principal; 2019-01-29 09:30)
PROC: 0DBC8ZX Excision of Ileocecal Valve, Via Natural or Artificial Opening Endoscopic, Diagnostic (ICD-10-PCS; principal; 2019-01-29 09:30)
PROC: 0DBL8ZX Excision of Transverse Colon, Via Natural or Artificial Opening Endoscopic, Diagnostic (ICD-10-PCS; principal; 2019-01-29 09:30)
DX: Z12.11 Encounter for screening for malignant neoplasm of colon (principal); Z86.010 Personal history of colon polyps; Z80.0 Family history of malignant neoplasm of digestive organs; D12.3 Benign neoplasm of transverse colon; D12.2 Benign neoplasm of ascending colon; D12.0 Benign neoplasm of cecum; D12.4 Benign neoplasm of descending colon; K57.30 Diverticulosis of large intestine without perforation or abscess without bleeding; I10 Essential (primary) hypertension; I48.91 Unspecified atrial fibrillation; E11.40 Type 2 diabetes mellitus with diabetic neuropathy, unspecified; Z79.01 Long term (current) use of anticoagulants; J44.9 Chronic obstructive pulmonary disease, unspecified; G47.33 Obstructive sleep apnea (adult) (pediatric); Z79.899 Other long term (current) drug therapy; E11.9 Type 2 diabetes mellitus without complications; Z87.891 Personal history of nicotine dependence; E66.01 Morbid (severe) obesity due to excess calories; Z68.41 Body mass index [BMI] 40.0-44.9, adult
CPT/HCPCS: 82947; 88305; J2405; J2704; J7120

== ENCOUNTER 2019-03-28 11:45 | Inpatient (IN) | payer OTHER ==
[~2019-03-28] VITALS: Ht 198.1 cm; Wt 175.0 kg
[2019-03-28] MEDS ORDERED: TORSE20 PO (12:02)
[2019-03-28] MEDS ORDERED: MAGNESIUM OXID400 M3 PO (12:02)
[2019-03-28 12:05] LABS: Base Excess Venous 1.5 mmol/L; Bicarbonate Venous 25.8 mmol/L (24.0-30.0); PCO2 Venous 35.7 mmHg (38-42); PO2 Venous 55.6 mmHg (38-42); pH Blood Venous 7.46 (7.34-7.37)
[2019-03-28 12:16] LABS: BASOPHILS ABSOLUTE AUTO 0.06 K/mm3 (0.00-0.23); BASOPHILS PERCENT AUTO 1 % (0-2); EOSINOPHILS ABSOLUTE AUTO 0.27 K/mm3 (0.00-0.68); EOSINOPHILS PERCENT AUTO 3 % (0-6); Hematocrit 43.1 % (37.0-53.0); IMMATURE GRAN ABSOLUTE AUTO 0.03 K/mm3 (0.00-0.10); IMMATURE GRAN PERCENT AUTO 0 % (0-1); LYMPHOCYTES ABSOLUTE AUTO 1.34 K/mm3 (0.84-5.20); LYMPHOCYTES PERCENT AUTO 17 % (21-46); MONOCYTES ABSOLUTE AUTO 0.72 K/mm3 (0.16-1.47); MONOCYTES PERCENT AUTO 9 % (4-13); Mean Corpuscular HGB 31.4 pg (26.0-34.0); Mean Corpuscular HGB Conc 32.5 g/dL (31.5-36.5); Mean Corpuscular Volume 97 fL (80-100); Mean Platelet Volume 12.3 fL (9.1-12.4); NEUTROPHILS ABSOLUTE AUTO 5.61 K/mm3 (1.96-9.15); NEUTROPHILS PERCENT AUTO 70 % (41-73); Platelet Count 122 K/mm3 (150-400); RDW Coefficient Variation 13.6 % (11.7-14.2); RDW Standard Deviation 47.8 fL (35.1-46.3); Red Blood Cell Count 4.46 M/mm3 (4.30-5.90); White Blood Cell Count 8.03 K/mm3 (4.00-11.30)
[2019-03-28 12:26] LABS: Alanine Aminotransfer (ALT/SGP 27 U/L (12-78); Albumin, Blood 3.5 g/dL (3.4-5.0); Albumin/Globulin Ratio 0.9 (0.8-1.8); Anion Gap 7 mmol/L (6-16); Aspartate Aminotrans (AST/SGOT 19 U/L (12-37); Bilirubin, Total 0.5 mg/dL (0.1-1.0); Blood Urea Nitrogen 39 mg/dL (8-24); Bun/Creatinine Ratio 26.2 (12.0-20.0); CO2, Blood 24 mmol/L (21-32); Calcium, Blood 8.9 mg/dL (8.5-10.1); Chloride, Blood 106 mmol/L (98-108); Creatinine, Blood 1.49 mg/dL (0.60-1.20); Globulin, Blood 3.7 g/dL (2.2-4.0); Glomerular Filtration Rate 48 (60-); Glucose, Blood 149 mg/dL (70-99); Potassium, Blood 4.8 mmol/L (3.5-5.5); Sodium, Blood 137 mmol/L (136-145); Total Protein, Blood 7.2 g/dL (6.4-8.2)
[2019-03-28 12:29] LABS: Alk Phos 113 U/L (50-136); Troponin I <0.015 ng/mL (0.000-0.040)
[2019-03-28 14:37] LABS: Digoxin (Lanoxin) 0.11 ug/mL (0.80-2.00)
--- NOTE | 2019-03-28 18:45 | NUR ---
PT IS ALERT, ORIENTED X3. STATES HAS CHRONIC NEUROPATHY PAIN IN LOWER EXTREMITIES. HEART RHYTHM REMAINS IN SINUS BRADYCARDIA, HR 35-40. NO C/O CHEST PAIN. LUNG SOUNDS DIMINISHED THROUGHOUT, WITH WHEEZES, ON 4L/MIN OF SUPPLEMENTAL OXYGEN. PT HAS HOME BIPAP AVAILABLE IN ROOM. STRONG, NON-PRODUCTIVE COUGH. ABDOMEN LARGE, ROUND, TAUNT, BOWEL TONES NOTED IN ALL 4 QUADRANTS.DENIES N/V/D. PT HNV THIS SHFT. TRACE EDEMA NOTED IN LOWER EXTREMITIES, SKIN INTACT. PT HAS POWERGLIDE PRO MIDLINE CATHETER IN LEFT UPPER ARM, INFUSING WELL,
[2019-03-28 19:08] LABS: Source, Urine Voided
[2019-03-28 19:11] LABS: Appearance, Urine Clear (Clear); Bilirubin, Urine Neg (Neg); Blood, Urine Neg (Neg); Color, Urine Yellow (P-Yellow); Glucose Qualitative, Urine Neg (Neg); Ketones, Urine Neg (Neg); Leukocyte Esterase, Urine Neg (Neg); Nitrite, Urine Neg (Neg); Protein, Urine 1+ (Neg); Urobilinogen, Urine NORM (Normal)
--- NOTE | 2019-03-28 21:00 | NUR ---
SPOKE W/ MANAGER SOLUTION CALLED CARDIO TO CLARIFY MEDICATIONS TO BE HELD. PER PHYSICIAN HOLDING HOME MEDS BISTOLIC AND DIGOXIN. PROVIDER ORDER TO GIVE ONE DOSE OF NORVASC NOW FOR HTN OF SYSTOLIC 180. PT REMAINS ASYMPTOMATIC OR ANY CP[, SOB, OR DIZZINESS. WILL MONITOR CLOSELY.
[2019-03-29 01:07] LABS: Source, Urine Catheter
[2019-03-29 01:10] LABS: Bilirubin, Urine Neg (Neg); Blood, Urine 1+ (Neg); Glucose Qualitative, Urine 1+ (Neg); Ketones, Urine 1+ (Neg); Leukocyte Esterase, Urine Neg (Neg); Nitrite, Urine Neg (Neg); Protein, Urine Neg (Neg); Urobilinogen, Urine NORM (Normal)
[2019-03-29 01:11] LABS: Appearance, Urine Clear (Clear); Color, Urine Yellow (P-Yellow)
[2019-03-29 01:15] LABS: Red Blood Cells, Urine 0-2 /hpf (0-2); White Blood Cells, Urine 0-2 /hpf (0-5)
[2019-03-29 01:16] LABS: Amorphous Light (0-Heavy); Bacteria Few /hpf; Hyaline Casts 0-2 /lpf (0-2); Squamous Epithelial Cells Few /hpf (Few)
--- NOTE | 2019-03-29 04:50 | NUR ---
SHIFT SUMMARY PATIENT SLEPT WELL THROUGH NIGHT. STARTED ON DOPAMINE DRIP, BP INCREASED, OBTAINED X1 ORDER FOR HYDRALAZINE, BP WELL CONTROLLED. HR REMAINS IN 30S DESPITE DOPAMINE DRIP. COMPLAINS OF INTERMITTENT DIZZINESS
[2019-03-29 05:41] LABS: BASOPHILS ABSOLUTE AUTO 0.01 K/mm3 (0.00-0.23); BASOPHILS PERCENT AUTO 0 % (0-2); EOSINOPHILS PERCENT AUTO 0 % (0-6); Hematocrit 41.8 % (37.0-53.0); Hemoglobin 13.7 g/dL (13.5-17.5); IMMATURE GRAN ABSOLUTE AUTO 0.08 K/mm3 (0.00-0.10); IMMATURE GRAN PERCENT AUTO 1 % (0-1); LYMPHOCYTES ABSOLUTE AUTO 0.81 K/mm3 (0.84-5.20); LYMPHOCYTES PERCENT AUTO 8 % (21-46); MONOCYTES ABSOLUTE AUTO 0.22 K/mm3 (0.16-1.47); MONOCYTES PERCENT AUTO 2 % (4-13); Mean Corpuscular HGB 31.6 pg (26.0-34.0); Mean Corpuscular HGB Conc 32.8 g/dL (31.5-36.5); Mean Corpuscular Volume 96 fL (80-100); Mean Platelet Volume 12.2 fL (9.1-12.4); NEUTROPHILS ABSOLUTE AUTO 9.71 K/mm3 (1.96-9.15); NEUTROPHILS PERCENT AUTO 90 % (41-73); Platelet Count 138 K/mm3 (150-400); RDW Coefficient Variation 13.5 % (11.7-14.2); RDW Standard Deviation 47.8 fL (35.1-46.3); Red Blood Cell Count 4.34 M/mm3 (4.30-5.90); White Blood Cell Count 10.83 K/mm3 (4.00-11.30)
[2019-03-29 06:19] LABS: Alanine Aminotransfer (ALT/SGP 28 U/L (12-78); Albumin, Blood 3.4 g/dL (3.4-5.0); Albumin/Globulin Ratio 0.9 (0.8-1.8); Alk Phos 113 U/L (50-136); Anion Gap 9 mmol/L (6-16); Aspartate Aminotrans (AST/SGOT 22 U/L (12-37); Bilirubin, Total 0.4 mg/dL (0.1-1.0); Blood Urea Nitrogen 42 mg/dL (8-24); Bun/Creatinine Ratio 29.8 (12.0-20.0); CO2, Blood 22 mmol/L (21-32); Calcium, Blood 8.8 mg/dL (8.5-10.1); Chloride, Blood 104 mmol/L (98-108); Creatinine, Blood 1.41 mg/dL (0.60-1.20); Globulin, Blood 3.7 g/dL (2.2-4.0); Glomerular Filtration Rate 51 (60-); Glucose, Blood 261 mg/dL (70-99); Magnesium, Blood 2.4 mg/dL (1.6-2.4); Potassium, Blood 4.6 mmol/L (3.5-5.5); Sodium, Blood 135 mmol/L (136-145); Total Protein, Blood 7.1 g/dL (6.4-8.2); Troponin I <0.015 ng/mL (0.000-0.040)
--- NOTE | 2019-03-29 07:30 | NUR ---
ASSUMED CARE OF PT AT 0700. REPORT FROM HAKAN CASTANEDA. PT A&OX 4. RESTING IN BED. DENIES CP, SOB OR OTHER SYMPTOMS AT THIS TIME. REPORTS INTERMITTANT DIZZINESS. SPEAKING IN FULL SENTANCES. EXPIRATORY WHEEZES IN LOWER LOBES. PT c DRY COUGH. ZOLL ATTACHED, HR 35-40. DOPAMINE INFUSING VIA POWERGLIDE TO LUE AT 3 MCG/KG/MIN. PT P/W/D. MAEW. ABD OBESE, ROUND, FIRM. ACCESSORY MUSCLES USED FOR RESP. 2L O2 VIA NC. HOME CPAP AT BEDSIDE. CHANEL CATH IN PLACE, PATENT AND DRAINING TO GRAVITY. PT REPORTS URINARY RETENTION LAST NOC. WILL CONTINUE TO MONITOR.
--- NOTE | 2019-03-29 11:15 | NUR ---
DR DANIELLE IN TO SEE PT. DISCUSSED c PT POSSIBLE PERMANENT OR TEMPORARY PACEMAKER. PER DR DANIELLE, MEDICATED c ATROPINE 0.5 MG IVP. PT HR INCREASED FROM MID 30'S TO HIGH 40'S.
--- NOTE | 2019-03-29 13:19 | NUR ---
echocardiogram complete
--- NOTE | 2019-03-29 16:59 | NUR ---
SHIFT SUMMARY PT HR CONTINUED IN MID 30'S LOW 40'S MOST OF SHIFT. EVENTS SPECIALIST ORDERED ATROPINE, GIVEN s CHANGE IN HR. PLAN FOR POSSIBLE PACEMAKER TOMORROW. PT DENIES SYMPTOMS OTHER THAN OCCASIONAL DIZZINESS THIS SHIFT. REMAINED IN BED THROUGHOUT SHIFT. DOPAMINE INFUSING AT 3 MCG/KG/MIN ENTIRE SHIFT. ANTIBIOTICS ADDED BY DR THOMAS. PT INTERMITTANTLY WORE HOME CPAP OR 2L O2 VIA NC. PRN BREATHING TREATMENTS GIVEN. PT WHEEZING, DRY COUGH. BP STABLE. REPORT TO ONCOMING NURSE.
--- NOTE | 2019-03-29 22:33 | NUR ---
START OF SHIFT: BEDSIDE REPORT FROM J CARLOS CASTANEDA. PT A+O x4, PT WEARING CPAP AT THAT TIME. DOPAMINE INFUSING AT 3 mcg c/ HR 30'S. BP STABLE. PT DENIED CP, SOB, NOR ANY OTHER SYPMTOMS. PT C/ FAMILY VISITING FOR SHORT TIME. RT CAME TO BEDSIDE FOR ROUTINE ROUNDS AND BREATHING TX. PT WAS PROVIDED CPAP MASK ADJUSTMENTS FOR COMFORT AND PROPER FIT. PT CURRENTLY RESTING QUIETLY. VITALS UNCHANGED. CALL LIGHT WITHIN REACH.
[2019-03-30 04:01] LABS: BASOPHILS ABSOLUTE AUTO 0.02 K/mm3 (0.00-0.23); BASOPHILS PERCENT AUTO 0 % (0-2); EOSINOPHILS PERCENT AUTO 0 % (0-6); Hematocrit 44.1 % (37.0-53.0); Hemoglobin 14.4 g/dL (13.5-17.5); IMMATURE GRAN PERCENT AUTO 1 % (0-1); LYMPHOCYTES ABSOLUTE AUTO 0.85 K/mm3 (0.84-5.20); LYMPHOCYTES PERCENT AUTO 5 % (21-46); MONOCYTES ABSOLUTE AUTO 0.51 K/mm3 (0.16-1.47); MONOCYTES PERCENT AUTO 3 % (4-13); Mean Corpuscular HGB 31.4 pg (26.0-34.0); Mean Corpuscular HGB Conc 32.7 g/dL (31.5-36.5); Mean Corpuscular Volume 96 fL (80-100); Mean Platelet Volume 12.3 fL (9.1-12.4); NEUTROPHILS ABSOLUTE AUTO 15.31 K/mm3 (1.96-9.15); NEUTROPHILS PERCENT AUTO 91 % (41-73); Platelet Count 125 K/mm3 (150-400); RDW Coefficient Variation 13.6 % (11.7-14.2); RDW Standard Deviation 47.6 fL (35.1-46.3); Red Blood Cell Count 4.58 M/mm3 (4.30-5.90); White Blood Cell Count 16.79 K/mm3 (4.00-11.30)
--- NOTE | 2019-03-30 04:14 | NUR ---
UPDATE: PT HAS BEEN RESTING T/O NOC. PT STATED, "I'VE BEEN SLEEPING LIKE A BABY". PT HAS DENIED PAIN/SOB. DOPAMINE CONTINUES TO INFUSE WITH HR DOWN TO 27-29 AT APPROX [id number]. BP 120'S/49. DOPAMINE gtt WAS INCREASED TO 5mcg AND CONTINUES TO INFUSE AT 5mcg. BP CURRENLTY 134/61, HR 33-45. PT AWAKENS EASILY TO VOICE. PT CONTINUES TO DENY PAIN. WILL CONTINUE TO MONITOR. CALL LIGHT WITHIN REACH.
[2019-03-30 04:15] LABS: International Normalized Ratio 1.09; Prothrombin Time Results 11.6 Sec (9.7-11.5)
[2019-03-30 04:18] LABS: Albumin, Blood 3.5 g/dL (3.4-5.0); Anion Gap 9 mmol/L (6-16); Blood Urea Nitrogen 53 mg/dL (8-24); Bun/Creatinine Ratio 32.1 (12.0-20.0); CO2, Blood 22 mmol/L (21-32); Calcium, Blood 8.6 mg/dL (8.5-10.1); Chloride, Blood 100 mmol/L (98-108); Creatinine, Blood 1.65 mg/dL (0.60-1.20); Glomerular Filtration Rate 43 (60-); Glucose, Blood 244 mg/dL (70-99); Magnesium, Blood 2.3 mg/dL (1.6-2.4); Potassium, Blood 5.1 mmol/L (3.5-5.5); Sodium, Blood 131 mmol/L (136-145)
--- NOTE | 2019-03-30 07:15 | NUR ---
START OF SHIFT NOTE: RECEIVED REPORT FROM BETZY RN, ASSUMED CARE, PATIENT IS AWAKE, ALERT AND ORIENTED, SINUS NAHUM WITH HR IN UPPER 20'S WHEN ASLEEP AND IN 40'S WHEN AWAKE, SBP'S 120'S, PATIENT IS ON DOPAMINE DRIP AT 3 D/T BLOOD PRESSURE AND HR ISSUES, TITRATING TO EFFECT, LUNG SOUNDS ARE DIMINISHED AND PATIENT HAS EXPIRATORY WHEEZES THROUGHOUT, BOWEL TONES PRESENT IN ALL FOUR QUADRANTS BUT HYPOACTIVE, PATIENT IS NPO SINCE MIDNIGHT, CHANEL CATHETER IN PLACE, PATIENT HAS GOOD URINE OUTPUT, BLOOD GLUCOSE CHECK SHOWED 271 AND WAS COVERED WITH 7 UNITS OF HUMALOG, AFEBRILE, DENIES PAIN, CALL LIGHT IN REACH, WILL CONTINUE TO MONITOR.
--- NOTE | 2019-03-30 07:43 | NUR ---
DR. KING CALLED, UPDATED ON PATIENT STATUS, CONSENT IN ROOM, DR. KING WILL COME SEE PATIENT SHORTLY, PPM SOMETIME THIS AM.
--- NOTE | 2019-03-30 07:43 | NUR ---
DR. DANIELLE IN TO SEE PATIENT PRIOR TO PENDING PPM PLACEMENT.
--- NOTE | 2019-03-30 10:58 | NUR ---
DR. MODI IN TO SEE PATIENT, NO NEW ORDERS RECEIVED.
--- NOTE | 2019-03-30 11:43 | NUR ---
DR. KING CALLED AND IS CONCERNED ABOUT PATIENT'S INCREASE IN WBC'S FROM 10 TO 16, ASKED THIS RN TO CALL DR. MODI AND ADDRESS POSSIBLE INFECTION AND TREATMENT, DR. MODI WAS NOT CONCERNED BUT STATED THAT HE WILL CALL DR. KING AND SPEAK WITH HIM.
--- NOTE | 2019-03-30 12:00 | NUR ---
PATIENT RESTING COMFORTABLY, PRECEDEX AT 0.5 AT THIS TIME, TOOK NOON MEDICATION WITH SMALL SIPS OF WATER, NO PROBLEM SWALLOWING, VSS, AFEBRILE, DENIES PAIN, CALL LIGHT IN REACH, WILL CONTINUE TO MONITOR.
--- NOTE | 2019-03-30 12:01 | NUR ---
DR. KING IN TO SPEAK WITH PATIENT AND FAMILY AND HAVE PATIENT SIGN CONSENT FOR PPM PLACEMENT, DR. KING SPOKE WITH DR. MODI, WHO IS NOT CONCERNED ABOUT INCREASE IN WBC, DR. KING WILL GO AHEAD WITH PPM PLACEMENT.
--- NOTE | 2019-03-30 13:31 | NUR ---
PATIENT TO LINE INSPECTOR FOR PLACEMENT OF PPM WITH CPAP, CHART, AND IV DRIP.
--- NOTE | 2019-03-30 16:35 | NUR ---
PATIENT FROM AIRPLANE COVERER DIRECTLY MOVED TO PCU 16, REPORT GIVEN TO MARY ANNE REDDY RN, AT BEDSIDE IN PCU 16, ALL MEDICATIONS AND BELONGINGS WERE MOVED TO PCU 16.
--- NOTE | 2019-03-31 06:00 | NUR ---
SHIFT SUMMARY. DENIES ANY PAIN OF OPERATIVE LT CHEST WALL SITE. ONLY MILD SORENESS IF PALPATED. TELFA DRY AND INTACT. SURROUNDING SITE WNL . FREQ COUGHING FITS AND HACKY/ WHEEZY/ VERY HARSH. REPORTS VERY COMMON AT HOME LIKE THIS W/ COPD HX . HE IN NOT A CURRENT SMOKER. NOTED POSTERIOR.RASHY/ PETECHIA/CHAPPED AREA OF LT POST CALF. SLING ON AT ALL TIMES. AWARE OF RESTRICTIONS. HS SNACK. END EXP WZ T/O MOSTLY. 100% PACED. NUMBNESS AND TINGLING OF LOWER EXT AND REPORTS A SHARP PAIN OCC, ALSO. CHANEL CONT. HUGE URINE OUT PUT ..
[2019-03-31] MEDS ORDERED: Norvasc5 MG PO (14:00)
[2019-03-31] MEDS ORDERED: CEFD300 PO (14:01)
[2019-03-31] MEDS ORDERED: Duoneb 2.5-0.5 M3 ML INH (14:01)
[2019-03-31] MEDS ORDERED: Prednisone20 MG PO (14:03)
--- NOTE | 2019-03-31 15:40 | NUR ---
SHIFT SUMMARY PT A&Ox4; CALM AND COOPERATIVE [facility] CARE. PT UP IN ROOM SBA. UP TO RECLINER FOR MAJORITY OF SHIFT, UP IN BATHROOM. PT DENIES PAIN, CHEST PAIN/PRESSURE, SOB, LIGHTHEADEDNESS/DIZZINESS OR NASUEA. PT REPORTS TENDERNESS TO LEFT CHEST, PACEMAKER PLACEMENT SITE. DRESSING C/D/I; DRESSING CHANGED BY DR KING THIS DURING SHIFT. STERISTRIPS IN PLACE. PT RECEIVING IV ANTIBIOTICS AND IV STEROIDS. VSS. NO OTHER ACUTE CHANGES NOTED DURING SHIFT. EDUCATED PT ON DISCAHRGE INSTRUCTIONS, MEDICATION AND FOLLOW UP APPOINTENT. PT STATES " MY BABY ASPIRIN HAS DONE WELL FOR ME SINCE I WAS 37 YEARS OLD" EDUCATED PT TO START ELIQUIS Saturday04/01/2019 EVENING PER ORDERS. PRESCRIPTIONS CALLED IN TO [facility]. PT LEFT VIA WHEELCHAIR AT 1510. PT STABLE UPON DISCHARGE.
== END 2019-03-31 15:23 | disposition home or self-care (01) | DRG 242 ==
LOC: ER 11:45 → PCU 14:21 → ICUE 23:19 → PCU 03-30 16:43
PROVIDERS: Emergency Medicine; Nurse Practitioner Acute Care; ADMIT Internal Medicine Gastroenterology
PROC: 0JH604Z Insertion of Pacemaker, Single Chamber into Chest Subcutaneous Tissue and Fascia, Open Approach (ICD-10-PCS; principal; 2019-03-30)
PROC: 02HK3JZ Insertion of Pacemaker Lead into Right Ventricle, Percutaneous Approach (ICD-10-PCS; 2019-03-30)
DX: I44.2 Atrioventricular block, complete (principal); J96.21 Acute and chronic respiratory failure with hypoxia; I50.33 Acute on chronic diastolic (congestive) heart failure; J44.1 Chronic obstructive pulmonary disease with (acute) exacerbation; N17.9 Acute kidney failure, unspecified; I13.0 Hypertensive heart and chronic kidney disease with heart failure and stage 1 through stage 4 chronic kidney disease, or unspecified chronic kidney disease; Z68.42 Body mass index [BMI] 45.0-49.9, adult; G47.33 Obstructive sleep apnea (adult) (pediatric); I11.0 Hypertensive heart disease with heart failure; E11.40 Type 2 diabetes mellitus with diabetic neuropathy, unspecified; M10.9 Gout, unspecified; Z98.52 Vasectomy status; Z87.891 Personal history of nicotine dependence; E66.01 Morbid (severe) obesity due to excess calories; I48.91 Unspecified atrial fibrillation; L40.9 Psoriasis, unspecified; N18.3 Chronic kidney disease, stage 3 (moderate); E11.22 Type 2 diabetes mellitus with diabetic chronic kidney disease; Z79.84 Long term (current) use of oral hypoglycemic drugs
CPT/HCPCS: 33207; 33210; 51702; 71045; 71046; 80053; 80069; 80162; 81001; 82803; 82947; 83735; 83880; 84443; 84484; 85025; 85610; 93005; 93010; 93308; 93321; 94640; 94760; 94762; 96361; 96365; 96375; 99152; 99153; 99285-25; A9270-GY; C1751; C1781; C1786; C1898; J0360; J0456; J0461; J0690; J0696; J1265; J1644; J1940; J2250; J2405; J2930; J3010; J3475; J7030; J7040; J7050; J7512

== ENCOUNTER 2021-06-23 00:26 | Day surgery (SDC) | payer OTHER ==
[~2021-06-23 00:26] MED LIST changes: +CEFD300 PO; +Duoneb 2.5-0.5 M3 ML INH; +MAGNESIUM OXID400 M3 PO; +Norvasc5 MG PO; +Prednisone20 MG PO
== END 2021-06-23 22:58 | disposition home or self-care (01) ==
LOC: WOUND 00:26
DX: E11.621 Type 2 diabetes mellitus with foot ulcer (principal); L97.522 Non-pressure chronic ulcer of other part of left foot with fat layer exposed; I10 Essential (primary) hypertension; G47.33 Obstructive sleep apnea (adult) (pediatric); Z87.891 Personal history of nicotine dependence; Z88.0 Allergy status to penicillin; Z88.5 Allergy status to narcotic agent; Z88.1 Allergy status to other antibiotic agents; Z88.8 Allergy status to other drugs, medicaments and biological substances
CPT/HCPCS: 99406; A9270; G0463

== ENCOUNTER 2021-07-07 01:13 | Day surgery (SDC) | payer OTHER | END 2021-07-07 23:28 | disposition home or self-care (01) | LOC: WOUND 01:13 | DX: E11.621 Type 2 diabetes mellitus with foot ulcer (principal); L97.425 Non-pressure chronic ulcer of left heel and midfoot with muscle involvement without evidence of necrosis; Z72.0 Tobacco use; E11.40 Type 2 diabetes mellitus with diabetic neuropathy, unspecified; E11.51 Type 2 diabetes mellitus with diabetic peripheral angiopathy without gangrene ==

== ENCOUNTER 2021-07-14 05:27 | Day surgery (SDC) | payer OTHER | END 2021-07-14 23:07 | disposition home or self-care (01) | LOC: WOUND 05:27 | DX: E11.621 Type 2 diabetes mellitus with foot ulcer (principal); L97.425 Non-pressure chronic ulcer of left heel and midfoot with muscle involvement without evidence of necrosis; Z72.0 Tobacco use; E11.40 Type 2 diabetes mellitus with diabetic neuropathy, unspecified | CPT/HCPCS: A9270; G0463 ==

== ENCOUNTER 2021-07-25 01:08 | Day surgery (SDC) | payer OTHER | END 2021-07-25 23:25 | disposition home or self-care (01) | LOC: WOUND 01:08 | DX: E11.621 Type 2 diabetes mellitus with foot ulcer (principal); L97.425 Non-pressure chronic ulcer of left heel and midfoot with muscle involvement without evidence of necrosis; E11.40 Type 2 diabetes mellitus with diabetic neuropathy, unspecified; Z72.0 Tobacco use | CPT/HCPCS: A9270; G0463 ==

== ENCOUNTER 2021-08-01 01:59 | Day surgery (SDC) | payer OTHER | END 2021-08-01 22:58 | disposition home or self-care (01) | LOC: WOUND 01:59 | DX: E11.621 Type 2 diabetes mellitus with foot ulcer (principal); L97.425 Non-pressure chronic ulcer of left heel and midfoot with muscle involvement without evidence of necrosis; E11.40 Type 2 diabetes mellitus with diabetic neuropathy, unspecified; Z72.0 Tobacco use | CPT/HCPCS: A9270 ==

== ENCOUNTER 2021-08-04 01:22 | Day surgery (SDC) | payer OTHER | END 2021-08-04 23:39 | disposition home or self-care (01) | LOC: WOUND 01:22 | DX: E11.621 Type 2 diabetes mellitus with foot ulcer (principal); E11.40 Type 2 diabetes mellitus with diabetic neuropathy, unspecified; L97.525 Non-pressure chronic ulcer of other part of left foot with muscle involvement without evidence of necrosis; I10 Essential (primary) hypertension; G47.33 Obstructive sleep apnea (adult) (pediatric); Z87.891 Personal history of nicotine dependence; N40.0 Benign prostatic hyperplasia without lower urinary tract symptoms; Z72.0 Tobacco use | CPT/HCPCS: 87070; 87075; 87077; 87185; 87186; 87205; 99406; A9270 ==

== ENCOUNTER 2021-08-09 01:17 | Day surgery (SDC) | payer OTHER | END 2021-08-09 22:49 | disposition home or self-care (01) | LOC: WOUND 01:17 | DX: E11.621 Type 2 diabetes mellitus with foot ulcer (principal); L97.425 Non-pressure chronic ulcer of left heel and midfoot with muscle involvement without evidence of necrosis; E11.40 Type 2 diabetes mellitus with diabetic neuropathy, unspecified; Z72.0 Tobacco use; I10 Essential (primary) hypertension; G47.33 Obstructive sleep apnea (adult) (pediatric) | CPT/HCPCS: 99406; G0463 ==

== ENCOUNTER 2021-08-16 01:51 | Day surgery (SDC) | payer OTHER | END 2021-08-16 22:47 | disposition home or self-care (01) | LOC: WOUND 01:51 | DX: E11.621 Type 2 diabetes mellitus with foot ulcer (principal); L97.525 Non-pressure chronic ulcer of other part of left foot with muscle involvement without evidence of necrosis; I10 Essential (primary) hypertension; G47.33 Obstructive sleep apnea (adult) (pediatric); Z87.891 Personal history of nicotine dependence; Z72.0 Tobacco use | CPT/HCPCS: G0463 ==

== ENCOUNTER 2021-08-23 08:00 | Day surgery (SDC) | payer OTHER | END 2021-08-23 23:59 | disposition home or self-care (01) | LOC: WOUND 08:00 | DX: E11.621 Type 2 diabetes mellitus with foot ulcer (principal); L97.425 Non-pressure chronic ulcer of left heel and midfoot with muscle involvement without evidence of necrosis; Z72.0 Tobacco use; E11.40 Type 2 diabetes mellitus with diabetic neuropathy, unspecified; G47.33 Obstructive sleep apnea (adult) (pediatric); I10 Essential (primary) hypertension; N40.0 Benign prostatic hyperplasia without lower urinary tract symptoms; M19.90 Unspecified osteoarthritis, unspecified site | CPT/HCPCS: 99406; A9270 ==

== ENCOUNTER 2021-08-28 00:43 | Day surgery (SDC) | payer OTHER ==
[~2021-08-28 00:43] MED LIST changes: -PRAVASTATIN SOD10 MG PO; +PRAVASTATIN SOD40 MG PO
== END 2021-08-28 23:47 | disposition home or self-care (01) ==
LOC: HBO 00:43
DX: E11.621 Type 2 diabetes mellitus with foot ulcer (principal); L97.522 Non-pressure chronic ulcer of other part of left foot with fat layer exposed; E11.40 Type 2 diabetes mellitus with diabetic neuropathy, unspecified; Z72.0 Tobacco use
CPT/HCPCS: 82947; 99406; G0277

== ENCOUNTER 2021-08-29 05:06 | Day surgery (SDC) | payer OTHER | END 2021-08-29 23:56 | disposition home or self-care (01) | LOC: HBO 05:06 | DX: E11.621 Type 2 diabetes mellitus with foot ulcer (principal); L97.522 Non-pressure chronic ulcer of other part of left foot with fat layer exposed; E11.40 Type 2 diabetes mellitus with diabetic neuropathy, unspecified; Z72.0 Tobacco use | CPT/HCPCS: 82947; G0277 ==

== ENCOUNTER 2021-08-30 03:45 | Day surgery (SDC) | payer OTHER | END 2021-08-30 23:52 | LOC: HBO 03:45 | DX: E11.621 Type 2 diabetes mellitus with foot ulcer (principal); L97.522 Non-pressure chronic ulcer of other part of left foot with fat layer exposed; E11.40 Type 2 diabetes mellitus with diabetic neuropathy, unspecified; Z72.0 Tobacco use | CPT/HCPCS: 82947; 99406; G0277 ==

== ENCOUNTER 2021-08-31 00:55 | Day surgery (SDC) | payer OTHER ==
[2021-09-01] MEDS ORDERED: ALLO300 PO (10:46)
[2021-09-01] MEDS ORDERED: FURO40 PO (10:48)
[2021-09-01] MEDS ORDERED: ROPI.25 PO (10:48)
[2021-09-01] MEDS ORDERED: COLCHICINE0.6 MG PO (10:48)
[2021-09-01] MEDS ORDERED: TAMS.4ER PO (10:49)
== END 2021-08-31 23:53 | disposition home or self-care (01) ==
LOC: HBO 00:55
DX: E11.621 Type 2 diabetes mellitus with foot ulcer (principal); L97.522 Non-pressure chronic ulcer of other part of left foot with fat layer exposed; E11.40 Type 2 diabetes mellitus with diabetic neuropathy, unspecified; Z72.0 Tobacco use
CPT/HCPCS: 82947; 99406; G0277

== ENCOUNTER 2021-09-01 03:05 | Day surgery (SDC) | payer OTHER ==
[2021-09-01] MEDS ORDERED: ALLO300 PO (10:46)
[2021-09-01] MEDS ORDERED: ROPI.25 PO (10:48)
[2021-09-01] MEDS ORDERED: FURO40 PO (10:48)
[2021-09-01] MEDS ORDERED: COLCHICINE0.6 MG PO (10:48)
[2021-09-01] MEDS ORDERED: TAMS.4ER PO (10:49)
== END 2021-09-01 23:16 | disposition home or self-care (01) ==
LOC: WOUND 03:05
DX: E11.621 Type 2 diabetes mellitus with foot ulcer (principal); L97.522 Non-pressure chronic ulcer of other part of left foot with fat layer exposed; E11.40 Type 2 diabetes mellitus with diabetic neuropathy, unspecified; Z72.0 Tobacco use
CPT/HCPCS: G0463

== ENCOUNTER 2021-09-01 03:09 | Day surgery (SDC) | payer OTHER ==
[2021-09-01] MEDS ORDERED: ALLO300 PO (10:46)
[2021-09-01] MEDS ORDERED: COLCHICINE0.6 MG PO (10:48)
[2021-09-01] MEDS ORDERED: FURO40 PO (10:48)
[2021-09-01] MEDS ORDERED: ROPI.25 PO (10:48)
[2021-09-01] MEDS ORDERED: TAMS.4ER PO (10:49)
== END 2021-09-01 23:20 | disposition home or self-care (01) ==
LOC: HBO 03:09
DX: E11.621 Type 2 diabetes mellitus with foot ulcer (principal); L97.522 Non-pressure chronic ulcer of other part of left foot with fat layer exposed; Z72.0 Tobacco use; E11.40 Type 2 diabetes mellitus with diabetic neuropathy, unspecified
CPT/HCPCS: 82947; 99406; G0277

== ENCOUNTER 2021-09-04 07:13 | Day surgery (SDC) | payer OTHER ==
[~2021-09-04 07:13] MED LIST changes: +COLCHICINE0.6 MG PO; +ROPI.25 PO; +TAMS.4ER PO
== END 2021-09-04 23:48 | disposition home or self-care (01) ==
LOC: HBO 07:13
DX: E11.621 Type 2 diabetes mellitus with foot ulcer (principal); L97.522 Non-pressure chronic ulcer of other part of left foot with fat layer exposed; E11.40 Type 2 diabetes mellitus with diabetic neuropathy, unspecified; Z72.0 Tobacco use
CPT/HCPCS: 82947; 99406; G0277

== ENCOUNTER 2021-09-05 03:18 | Day surgery (SDC) | payer OTHER | END 2021-09-05 23:45 | disposition home or self-care (01) | LOC: HBO 03:18 | DX: E11.621 Type 2 diabetes mellitus with foot ulcer (principal); L97.522 Non-pressure chronic ulcer of other part of left foot with fat layer exposed; E11.40 Type 2 diabetes mellitus with diabetic neuropathy, unspecified; Z72.0 Tobacco use | CPT/HCPCS: 82947; G0277 ==

== ENCOUNTER → 2021-09-06 | Day surgery (SDC) | payer OTHER | LOC: HBO 02:33 | DX: E11.621 Type 2 diabetes mellitus with foot ulcer (principal); E11.40 Type 2 diabetes mellitus with diabetic neuropathy, unspecified; L97.522 Non-pressure chronic ulcer of other part of left foot with fat layer exposed; Z72.0 Tobacco use | CPT/HCPCS: 82947; 99406; G0277 ==

== ENCOUNTER → 2021-09-06 | Day surgery (SDC) | payer OTHER | LOC: WOUND 02:22 | DX: E11.621 Type 2 diabetes mellitus with foot ulcer (principal); L97.522 Non-pressure chronic ulcer of other part of left foot with fat layer exposed; Z72.0 Tobacco use; E11.40 Type 2 diabetes mellitus with diabetic neuropathy, unspecified; I10 Essential (primary) hypertension; G47.33 Obstructive sleep apnea (adult) (pediatric); Z87.891 Personal history of nicotine dependence | CPT/HCPCS: 99406; G0463 ==

== ENCOUNTER 2021-09-07 01:35 | Day surgery (SDC) | payer OTHER | END 2021-09-07 23:45 | disposition home or self-care (01) | LOC: HBO 01:35 | DX: E11.621 Type 2 diabetes mellitus with foot ulcer (principal); L97.522 Non-pressure chronic ulcer of other part of left foot with fat layer exposed; E11.40 Type 2 diabetes mellitus with diabetic neuropathy, unspecified; Z72.0 Tobacco use | CPT/HCPCS: 82947; 99406; G0277 ==

== ENCOUNTER 2021-09-11 05:11 | Day surgery (SDC) | payer OTHER | END 2021-09-11 23:30 | disposition home or self-care (01) | LOC: HBO 05:11 | DX: E11.621 Type 2 diabetes mellitus with foot ulcer (principal); L97.522 Non-pressure chronic ulcer of other part of left foot with fat layer exposed; E11.40 Type 2 diabetes mellitus with diabetic neuropathy, unspecified; Z72.0 Tobacco use | CPT/HCPCS: 82947; 99406; G0277 ==

== ENCOUNTER 2021-09-13 01:01 | Day surgery (SDC) | payer OTHER | END 2021-09-13 23:36 | disposition home or self-care (01) | LOC: HBO 01:01 | DX: E11.621 Type 2 diabetes mellitus with foot ulcer (principal); L97.522 Non-pressure chronic ulcer of other part of left foot with fat layer exposed; Z72.0 Tobacco use | CPT/HCPCS: 82947; 99406; G0277 ==

== ENCOUNTER 2021-09-14 01:54 | Day surgery (SDC) | payer OTHER | END 2021-09-14 23:48 | disposition home or self-care (01) | LOC: HBO 01:54 | DX: E11.621 Type 2 diabetes mellitus with foot ulcer (principal); L97.522 Non-pressure chronic ulcer of other part of left foot with fat layer exposed; E11.40 Type 2 diabetes mellitus with diabetic neuropathy, unspecified; Z72.0 Tobacco use | CPT/HCPCS: 82947; 99406; G0277 ==

== ENCOUNTER 2021-09-15 01:19 | Day surgery (SDC) | payer OTHER | END 2021-09-15 23:10 | disposition home or self-care (01) | LOC: WOUND 01:19 | DX: E11.621 Type 2 diabetes mellitus with foot ulcer (principal); L97.522 Non-pressure chronic ulcer of other part of left foot with fat layer exposed; E11.40 Type 2 diabetes mellitus with diabetic neuropathy, unspecified; I10 Essential (primary) hypertension; G47.33 Obstructive sleep apnea (adult) (pediatric); Z87.891 Personal history of nicotine dependence ==

== ENCOUNTER 2021-09-15 01:22 | Day surgery (SDC) | payer OTHER | END 2021-09-15 23:11 | disposition home or self-care (01) | LOC: HBO 01:22 | DX: E11.621 Type 2 diabetes mellitus with foot ulcer (principal); L97.522 Non-pressure chronic ulcer of other part of left foot with fat layer exposed; E11.40 Type 2 diabetes mellitus with diabetic neuropathy, unspecified; Z72.0 Tobacco use | CPT/HCPCS: 82947; 99406; G0277 ==

== ENCOUNTER 2021-09-18 02:01 | Day surgery (SDC) | payer OTHER | END 2021-09-18 23:17 | disposition home or self-care (01) | LOC: HBO 02:01 | DX: E11.621 Type 2 diabetes mellitus with foot ulcer (principal); Z72.0 Tobacco use; L97.522 Non-pressure chronic ulcer of other part of left foot with fat layer exposed; E11.40 Type 2 diabetes mellitus with diabetic neuropathy, unspecified | CPT/HCPCS: 82947; G0277 ==

== ENCOUNTER 2021-09-19 01:04 | Day surgery (SDC) | payer OTHER | END 2021-09-20 00:07 | disposition home or self-care (01) | LOC: HBO 01:04 | DX: E11.621 Type 2 diabetes mellitus with foot ulcer (principal); L97.522 Non-pressure chronic ulcer of other part of left foot with fat layer exposed; E11.40 Type 2 diabetes mellitus with diabetic neuropathy, unspecified; Z72.0 Tobacco use | CPT/HCPCS: 82947; G0277 ==

== ENCOUNTER 2021-09-21 01:58 | Day surgery (SDC) | payer OTHER | END 2021-09-21 23:28 | disposition home or self-care (01) | LOC: HBO 01:58 | DX: E11.621 Type 2 diabetes mellitus with foot ulcer (principal); E11.40 Type 2 diabetes mellitus with diabetic neuropathy, unspecified; L97.522 Non-pressure chronic ulcer of other part of left foot with fat layer exposed; Z72.0 Tobacco use | CPT/HCPCS: 82947; G0277 ==

== ENCOUNTER 2021-09-22 02:29 | Day surgery (SDC) | payer OTHER | END 2021-09-22 23:23 | disposition home or self-care (01) | LOC: WOUND 02:29 | DX: E11.621 Type 2 diabetes mellitus with foot ulcer (principal); L97.425 Non-pressure chronic ulcer of left heel and midfoot with muscle involvement without evidence of necrosis; E11.40 Type 2 diabetes mellitus with diabetic neuropathy, unspecified; I10 Essential (primary) hypertension; G47.33 Obstructive sleep apnea (adult) (pediatric); N40.0 Benign prostatic hyperplasia without lower urinary tract symptoms; Z72.0 Tobacco use | CPT/HCPCS: 99406; A9270; G0463 ==

== ENCOUNTER 2021-09-22 02:33 | Day surgery (SDC) | payer OTHER | END 2021-09-22 23:23 | disposition home or self-care (01) | LOC: HBO 02:33 | DX: E11.621 Type 2 diabetes mellitus with foot ulcer (principal); E11.40 Type 2 diabetes mellitus with diabetic neuropathy, unspecified; L97.522 Non-pressure chronic ulcer of other part of left foot with fat layer exposed; Z72.0 Tobacco use | CPT/HCPCS: 82947; G0277 ==

== ENCOUNTER 2021-09-25 01:28 | Day surgery (SDC) | payer OTHER | END 2021-09-25 23:51 | disposition home or self-care (01) | LOC: HBO 01:28 | DX: E11.621 Type 2 diabetes mellitus with foot ulcer (principal); L97.522 Non-pressure chronic ulcer of other part of left foot with fat layer exposed; E11.40 Type 2 diabetes mellitus with diabetic neuropathy, unspecified; Z72.0 Tobacco use | CPT/HCPCS: 82947; G0277 ==

== ENCOUNTER 2021-09-26 00:48 | Day surgery (SDC) | payer OTHER | END 2021-09-26 12:59 | disposition home or self-care (01) | LOC: HBO 00:48 | DX: E11.621 Type 2 diabetes mellitus with foot ulcer (principal); L97.522 Non-pressure chronic ulcer of other part of left foot with fat layer exposed; E11.40 Type 2 diabetes mellitus with diabetic neuropathy, unspecified; Z72.0 Tobacco use | CPT/HCPCS: 82947; G0277 ==

== ENCOUNTER 2021-09-27 08:00 | Day surgery (SDC) | payer OTHER | END 2021-09-27 23:59 | disposition home or self-care (01) | LOC: HBO 08:00 | DX: E11.621 Type 2 diabetes mellitus with foot ulcer (principal); L97.522 Non-pressure chronic ulcer of other part of left foot with fat layer exposed; E11.40 Type 2 diabetes mellitus with diabetic neuropathy, unspecified; Z72.0 Tobacco use | CPT/HCPCS: 82947; G0277 ==

== ENCOUNTER 2021-09-28 01:49 | Day surgery (SDC) | payer OTHER | END 2021-09-28 22:45 | disposition home or self-care (01) | LOC: HBO 01:49 | DX: E11.621 Type 2 diabetes mellitus with foot ulcer (principal); L97.522 Non-pressure chronic ulcer of other part of left foot with fat layer exposed; E11.40 Type 2 diabetes mellitus with diabetic neuropathy, unspecified; Z72.0 Tobacco use | CPT/HCPCS: 82947; G0277 ==

== ENCOUNTER 2021-09-29 01:57 | Day surgery (SDC) | payer OTHER | END 2021-09-29 23:35 | disposition home or self-care (01) | LOC: HBO 01:57 | DX: E11.621 Type 2 diabetes mellitus with foot ulcer (principal); L97.522 Non-pressure chronic ulcer of other part of left foot with fat layer exposed; E11.40 Type 2 diabetes mellitus with diabetic neuropathy, unspecified; Z72.0 Tobacco use | CPT/HCPCS: 82947; G0277 ==

== ENCOUNTER 2021-10-02 03:37 | Day surgery (SDC) | payer OTHER | END 2021-10-02 23:13 | disposition home or self-care (01) | LOC: WOUND 03:37 | DX: E11.621 Type 2 diabetes mellitus with foot ulcer (principal); L97.421 Non-pressure chronic ulcer of left heel and midfoot limited to breakdown of skin; E11.40 Type 2 diabetes mellitus with diabetic neuropathy, unspecified; I10 Essential (primary) hypertension; Z87.891 Personal history of nicotine dependence ==

== ENCOUNTER 2021-10-02 03:38 | Day surgery (SDC) | payer OTHER | END 2021-10-02 23:13 | disposition home or self-care (01) | LOC: HBO 03:38 | DX: E11.621 Type 2 diabetes mellitus with foot ulcer (principal); L97.522 Non-pressure chronic ulcer of other part of left foot with fat layer exposed; E11.40 Type 2 diabetes mellitus with diabetic neuropathy, unspecified; Z72.0 Tobacco use | CPT/HCPCS: 82947; G0277 ==

== ENCOUNTER 2021-10-03 00:40 | Day surgery (SDC) | payer OTHER | END 2021-10-03 23:05 | disposition home or self-care (01) | LOC: HBO 00:40 | DX: E11.621 Type 2 diabetes mellitus with foot ulcer (principal); L97.522 Non-pressure chronic ulcer of other part of left foot with fat layer exposed; E11.40 Type 2 diabetes mellitus with diabetic neuropathy, unspecified; Z72.0 Tobacco use | CPT/HCPCS: 82947; G0277 ==

== ENCOUNTER 2021-10-04 00:55 | Day surgery (SDC) | payer OTHER | END 2021-10-04 23:43 | disposition home or self-care (01) | LOC: HBO 00:55 | DX: E11.621 Type 2 diabetes mellitus with foot ulcer (principal); L97.522 Non-pressure chronic ulcer of other part of left foot with fat layer exposed; E11.40 Type 2 diabetes mellitus with diabetic neuropathy, unspecified; Z72.0 Tobacco use | CPT/HCPCS: 82947; G0277 ==

== ENCOUNTER 2021-10-05 01:23 | Day surgery (SDC) | payer OTHER | END 2021-10-05 23:20 | disposition home or self-care (01) | LOC: HBO 01:23 | DX: E11.621 Type 2 diabetes mellitus with foot ulcer (principal); L97.522 Non-pressure chronic ulcer of other part of left foot with fat layer exposed; E11.40 Type 2 diabetes mellitus with diabetic neuropathy, unspecified; Z72.0 Tobacco use | CPT/HCPCS: 82947; G0277 ==

== ENCOUNTER 2021-10-09 00:18 | Day surgery (SDC) | payer OTHER | END 2021-10-10 00:50 | disposition home or self-care (01) | LOC: HBO 00:18 | DX: E11.621 Type 2 diabetes mellitus with foot ulcer (principal); L97.522 Non-pressure chronic ulcer of other part of left foot with fat layer exposed; E11.40 Type 2 diabetes mellitus with diabetic neuropathy, unspecified; Z72.0 Tobacco use | CPT/HCPCS: 82947; G0277 ==

== ENCOUNTER 2021-10-10 04:10 | Day surgery (SDC) | payer OTHER | END 2021-10-10 23:27 | disposition home or self-care (01) | LOC: HBO 04:10 | DX: E11.621 Type 2 diabetes mellitus with foot ulcer (principal); L97.522 Non-pressure chronic ulcer of other part of left foot with fat layer exposed; E11.40 Type 2 diabetes mellitus with diabetic neuropathy, unspecified; Z72.0 Tobacco use | CPT/HCPCS: 82947; G0277 ==

== ENCOUNTER 2021-10-11 01:48 | Day surgery (SDC) | payer OTHER | END 2021-10-11 23:42 | disposition home or self-care (01) | LOC: WOUND 01:48 | DX: E11.621 Type 2 diabetes mellitus with foot ulcer (principal); L97.422 Non-pressure chronic ulcer of left heel and midfoot with fat layer exposed; I10 Essential (primary) hypertension; Z87.891 Personal history of nicotine dependence; Z71.6 Tobacco abuse counseling | CPT/HCPCS: 99406; G0463 ==

== ENCOUNTER 2021-10-11 01:49 | Day surgery (SDC) | payer OTHER | END 2021-10-11 23:43 | disposition home or self-care (01) | LOC: HBO 01:49 | DX: E11.621 Type 2 diabetes mellitus with foot ulcer (principal); L97.522 Non-pressure chronic ulcer of other part of left foot with fat layer exposed; Z72.0 Tobacco use | CPT/HCPCS: 82947; G0277 ==

== ENCOUNTER 2021-10-13 02:13 | Day surgery (SDC) | payer OTHER | END 2021-10-13 23:23 | disposition home or self-care (01) | LOC: HBO | DX: E11.621 Type 2 diabetes mellitus with foot ulcer (principal); L97.522 Non-pressure chronic ulcer of other part of left foot with fat layer exposed; E11.40 Type 2 diabetes mellitus with diabetic neuropathy, unspecified; Z72.0 Tobacco use | CPT/HCPCS: 82947; G0277 ==

== ENCOUNTER 2021-10-16 01:15 | Day surgery (SDC) | payer OTHER | END 2021-10-16 23:19 | disposition home or self-care (01) | LOC: HBO 01:15 | DX: E11.621 Type 2 diabetes mellitus with foot ulcer (principal); E11.40 Type 2 diabetes mellitus with diabetic neuropathy, unspecified; L97.522 Non-pressure chronic ulcer of other part of left foot with fat layer exposed; Z72.0 Tobacco use | CPT/HCPCS: 82947; G0277 ==

== ENCOUNTER 2021-10-17 01:45 | Day surgery (SDC) | payer OTHER | END 2021-10-17 23:59 | disposition home or self-care (01) | LOC: HBO 01:45 | DX: E11.621 Type 2 diabetes mellitus with foot ulcer (principal); L97.522 Non-pressure chronic ulcer of other part of left foot with fat layer exposed; E11.40 Type 2 diabetes mellitus with diabetic neuropathy, unspecified; Z72.0 Tobacco use | CPT/HCPCS: 82947; G0277 ==

== ENCOUNTER 2021-10-18 03:20 | Day surgery (SDC) | payer OTHER | END 2021-10-18 23:00 | disposition home or self-care (01) | LOC: WOUND 03:20 | DX: E11.621 Type 2 diabetes mellitus with foot ulcer (principal); L97.525 Non-pressure chronic ulcer of other part of left foot with muscle involvement without evidence of necrosis; G47.33 Obstructive sleep apnea (adult) (pediatric); E11.42 Type 2 diabetes mellitus with diabetic polyneuropathy; Z87.891 Personal history of nicotine dependence | CPT/HCPCS: 99406 ==

== ENCOUNTER 2021-10-18 03:21 | Day surgery (SDC) | payer OTHER | END 2021-10-18 23:00 | disposition home or self-care (01) | LOC: HBO 03:21 | DX: E11.621 Type 2 diabetes mellitus with foot ulcer (principal); L97.522 Non-pressure chronic ulcer of other part of left foot with fat layer exposed; E11.40 Type 2 diabetes mellitus with diabetic neuropathy, unspecified; Z72.0 Tobacco use | CPT/HCPCS: 82947; G0277 ==

== ENCOUNTER 2021-10-24 00:55 | Day surgery (SDC) | payer OTHER | END 2021-10-24 23:56 | disposition home or self-care (01) | LOC: HBO 00:55 | DX: E11.621 Type 2 diabetes mellitus with foot ulcer (principal); L97.522 Non-pressure chronic ulcer of other part of left foot with fat layer exposed; E11.40 Type 2 diabetes mellitus with diabetic neuropathy, unspecified; Z72.0 Tobacco use | CPT/HCPCS: 82947; G0277 ==

== ENCOUNTER 2021-10-25 06:27 | Day surgery (SDC) | payer OTHER | END 2021-10-25 23:32 | disposition home or self-care (01) | LOC: HBO 06:27 | DX: E11.621 Type 2 diabetes mellitus with foot ulcer (principal); L97.522 Non-pressure chronic ulcer of other part of left foot with fat layer exposed; Z72.0 Tobacco use | CPT/HCPCS: 82947; G0277 ==

== ENCOUNTER 2021-10-26 00:19 | Day surgery (SDC) | payer OTHER | END 2021-10-26 23:10 | disposition home or self-care (01) | LOC: HBO 00:19 | DX: E11.621 Type 2 diabetes mellitus with foot ulcer (principal); Z72.0 Tobacco use; L97.522 Non-pressure chronic ulcer of other part of left foot with fat layer exposed | CPT/HCPCS: 82947; G0277 ==

== ENCOUNTER 2021-10-31 07:42 | Day surgery (SDC) | payer OTHER | END 2021-10-31 23:15 | disposition home or self-care (01) | LOC: HBO 07:42 | DX: E11.621 Type 2 diabetes mellitus with foot ulcer (principal); L97.522 Non-pressure chronic ulcer of other part of left foot with fat layer exposed; E11.40 Type 2 diabetes mellitus with diabetic neuropathy, unspecified; Z72.0 Tobacco use | CPT/HCPCS: 82947; G0277 ==

== ENCOUNTER 2021-11-01 07:34 | Day surgery (SDC) | payer OTHER | END 2021-11-01 23:41 | disposition home or self-care (01) | LOC: HBO 07:34 | DX: E11.621 Type 2 diabetes mellitus with foot ulcer (principal); L97.522 Non-pressure chronic ulcer of other part of left foot with fat layer exposed; E11.40 Type 2 diabetes mellitus with diabetic neuropathy, unspecified; Z72.0 Tobacco use | CPT/HCPCS: 82947; G0277 ==

== ENCOUNTER 2021-11-01 07:35 | Day surgery (SDC) | payer OTHER | END 2021-11-01 23:42 | disposition home or self-care (01) | LOC: WOUND 07:35 | DX: E11.621 Type 2 diabetes mellitus with foot ulcer (principal); L97.522 Non-pressure chronic ulcer of other part of left foot with fat layer exposed; E11.40 Type 2 diabetes mellitus with diabetic neuropathy, unspecified; Z72.0 Tobacco use; G47.33 Obstructive sleep apnea (adult) (pediatric); I10 Essential (primary) hypertension; Z87.891 Personal history of nicotine dependence | CPT/HCPCS: 99406; Q4133 ==

== ENCOUNTER 2021-11-02 02:11 | Day surgery (SDC) | payer OTHER | END 2021-11-02 23:29 | disposition home or self-care (01) | LOC: HBO 02:11 | DX: E11.621 Type 2 diabetes mellitus with foot ulcer (principal); L97.522 Non-pressure chronic ulcer of other part of left foot with fat layer exposed; Z72.0 Tobacco use; E11.40 Type 2 diabetes mellitus with diabetic neuropathy, unspecified | CPT/HCPCS: 82947; G0277 ==

== ENCOUNTER 2021-11-14 03:29 | Day surgery (SDC) | payer OTHER | END 2021-11-14 22:59 | disposition home or self-care (01) | LOC: HBO 03:29 | DX: E11.621 Type 2 diabetes mellitus with foot ulcer (principal); L97.522 Non-pressure chronic ulcer of other part of left foot with fat layer exposed; E11.40 Type 2 diabetes mellitus with diabetic neuropathy, unspecified; Z72.0 Tobacco use | CPT/HCPCS: 82947; G0277 ==

== ENCOUNTER 2021-11-16 02:03 | Day surgery (SDC) | payer OTHER | END 2021-11-16 23:27 | disposition home or self-care (01) | LOC: HBO 02:03 | DX: E11.621 Type 2 diabetes mellitus with foot ulcer (principal); L97.522 Non-pressure chronic ulcer of other part of left foot with fat layer exposed; E11.40 Type 2 diabetes mellitus with diabetic neuropathy, unspecified; Z72.0 Tobacco use | CPT/HCPCS: 82947; G0277 ==

== ENCOUNTER 2021-11-17 02:20 | Day surgery (SDC) | payer OTHER | END 2021-11-18 00:35 | disposition home or self-care (01) | LOC: HBO 02:20 | DX: E11.621 Type 2 diabetes mellitus with foot ulcer (principal); Z72.0 Tobacco use; L97.522 Non-pressure chronic ulcer of other part of left foot with fat layer exposed; E08.40 Diabetes mellitus due to underlying condition with diabetic neuropathy, unspecified | CPT/HCPCS: 82947; G0277 ==

== ENCOUNTER 2021-11-17 02:56 | Day surgery (SDC) | payer OTHER | END 2021-11-18 00:36 | disposition home or self-care (01) | LOC: WOUND 02:56 | DX: E11.621 Type 2 diabetes mellitus with foot ulcer (principal); L97.425 Non-pressure chronic ulcer of left heel and midfoot with muscle involvement without evidence of necrosis; E11.40 Type 2 diabetes mellitus with diabetic neuropathy, unspecified; I10 Essential (primary) hypertension; N40.0 Benign prostatic hyperplasia without lower urinary tract symptoms; Z87.891 Personal history of nicotine dependence | CPT/HCPCS: G0463; Q4133 ==

== ENCOUNTER 2021-11-20 00:53 | Day surgery (SDC) | payer OTHER | END 2021-11-20 23:01 | disposition home or self-care (01) | LOC: HBO 00:53 | DX: E11.621 Type 2 diabetes mellitus with foot ulcer (principal); Z72.0 Tobacco use; L97.522 Non-pressure chronic ulcer of other part of left foot with fat layer exposed | CPT/HCPCS: 82947; G0277 ==

== ENCOUNTER 2021-11-21 02:23 | Day surgery (SDC) | payer OTHER | END 2021-11-21 22:54 | disposition home or self-care (01) | LOC: HBO 02:23 | DX: E11.621 Type 2 diabetes mellitus with foot ulcer (principal); Z72.0 Tobacco use; L97.522 Non-pressure chronic ulcer of other part of left foot with fat layer exposed | CPT/HCPCS: 82947; G0277 ==

== ENCOUNTER 2021-11-22 01:51 | Day surgery (SDC) | payer OTHER | END 2021-11-22 23:39 | disposition home or self-care (01) | LOC: HBO 01:51 | DX: E11.621 Type 2 diabetes mellitus with foot ulcer (principal); L97.522 Non-pressure chronic ulcer of other part of left foot with fat layer exposed; E11.40 Type 2 diabetes mellitus with diabetic neuropathy, unspecified; I10 Essential (primary) hypertension; N40.0 Benign prostatic hyperplasia without lower urinary tract symptoms; Z87.891 Personal history of nicotine dependence | CPT/HCPCS: 82947; G0277 ==

== ENCOUNTER 2021-11-27 01:29 | Day surgery (SDC) | payer OTHER | END 2021-11-27 23:32 | disposition home or self-care (01) | LOC: HBO 01:29 | DX: E11.621 Type 2 diabetes mellitus with foot ulcer (principal); L97.522 Non-pressure chronic ulcer of other part of left foot with fat layer exposed; E11.40 Type 2 diabetes mellitus with diabetic neuropathy, unspecified; Z72.0 Tobacco use; Z88.0 Allergy status to penicillin; Z88.5 Allergy status to narcotic agent; Z88.1 Allergy status to other antibiotic agents; Z88.8 Allergy status to other drugs, medicaments and biological substances | CPT/HCPCS: 82947; G0277 ==

== ENCOUNTER 2021-11-28 02:19 | Day surgery (SDC) | payer OTHER | END 2021-11-28 22:46 | disposition home or self-care (01) | LOC: HBO 02:19 | DX: E11.621 Type 2 diabetes mellitus with foot ulcer (principal); Z72.0 Tobacco use; L97.522 Non-pressure chronic ulcer of other part of left foot with fat layer exposed | CPT/HCPCS: 82947; G0277 ==

== ENCOUNTER 2021-11-30 04:07 | Day surgery (SDC) | payer OTHER | END 2021-11-30 22:43 | disposition home or self-care (01) | LOC: HBO 04:07 | DX: E11.621 Type 2 diabetes mellitus with foot ulcer (principal); L97.522 Non-pressure chronic ulcer of other part of left foot with fat layer exposed; E11.40 Type 2 diabetes mellitus with diabetic neuropathy, unspecified; Z72.0 Tobacco use | CPT/HCPCS: 82947; G0277 ==

== ENCOUNTER 2021-12-01 02:34 | Day surgery (SDC) | payer OTHER | END 2021-12-01 23:38 | disposition home or self-care (01) | LOC: HBO 02:34 | DX: E11.621 Type 2 diabetes mellitus with foot ulcer (principal); L97.522 Non-pressure chronic ulcer of other part of left foot with fat layer exposed; I10 Essential (primary) hypertension; Z87.891 Personal history of nicotine dependence | CPT/HCPCS: 82947; G0277 ==

== ENCOUNTER 2021-12-01 03:20 | Day surgery (SDC) | payer OTHER | END 2021-12-01 23:38 | disposition home or self-care (01) | LOC: WOUND 03:20 | DX: E11.621 Type 2 diabetes mellitus with foot ulcer (principal); L97.425 Non-pressure chronic ulcer of left heel and midfoot with muscle involvement without evidence of necrosis; E11.40 Type 2 diabetes mellitus with diabetic neuropathy, unspecified; I10 Essential (primary) hypertension; N40.0 Benign prostatic hyperplasia without lower urinary tract symptoms; M19.90 Unspecified osteoarthritis, unspecified site; Z87.891 Personal history of nicotine dependence | CPT/HCPCS: A9270; G0463 ==

== ENCOUNTER 2021-12-08 01:17 | Day surgery (SDC) | payer OTHER | END 2021-12-08 23:30 | disposition home or self-care (01) | LOC: WOUND 01:17 | DX: E11.621 Type 2 diabetes mellitus with foot ulcer (principal); E11.40 Type 2 diabetes mellitus with diabetic neuropathy, unspecified; L97.525 Non-pressure chronic ulcer of other part of left foot with muscle involvement without evidence of necrosis; Z87.891 Personal history of nicotine dependence; I10 Essential (primary) hypertension; G47.33 Obstructive sleep apnea (adult) (pediatric) | CPT/HCPCS: A9270 ==

== ENCOUNTER 2021-12-15 00:48 | Day surgery (SDC) | payer OTHER | END 2021-12-15 23:39 | disposition home or self-care (01) | LOC: WOUND 00:48 | DX: E11.621 Type 2 diabetes mellitus with foot ulcer (principal); L97.425 Non-pressure chronic ulcer of left heel and midfoot with muscle involvement without evidence of necrosis; E11.40 Type 2 diabetes mellitus with diabetic neuropathy, unspecified; I10 Essential (primary) hypertension; M19.90 Unspecified osteoarthritis, unspecified site; N40.0 Benign prostatic hyperplasia without lower urinary tract symptoms; Z87.891 Personal history of nicotine dependence ==

== ENCOUNTER 2021-12-21 03:50 | Day surgery (SDC) | payer OTHER | END 2021-12-21 23:03 | disposition home or self-care (01) | LOC: WOUND 03:50 | DX: E11.621 Type 2 diabetes mellitus with foot ulcer (principal); L97.425 Non-pressure chronic ulcer of left heel and midfoot with muscle involvement without evidence of necrosis; E11.40 Type 2 diabetes mellitus with diabetic neuropathy, unspecified; I10 Essential (primary) hypertension; M19.90 Unspecified osteoarthritis, unspecified site; G47.33 Obstructive sleep apnea (adult) (pediatric); N40.0 Benign prostatic hyperplasia without lower urinary tract symptoms; Z72.0 Tobacco use; Z87.891 Personal history of nicotine dependence | CPT/HCPCS: A9270 ==

== ENCOUNTER 2021-12-27 08:00 | Day surgery (SDC) | payer OTHER | END 2021-12-27 23:59 | disposition home or self-care (01) | LOC: WOUND 08:00 | DX: E11.621 Type 2 diabetes mellitus with foot ulcer (principal); L97.522 Non-pressure chronic ulcer of other part of left foot with fat layer exposed; E11.40 Type 2 diabetes mellitus with diabetic neuropathy, unspecified; Z72.0 Tobacco use | CPT/HCPCS: G0463 ==

== ENCOUNTER 2022-01-05 00:32 | Day surgery (SDC) | payer OTHER | END 2022-01-05 22:52 | disposition home or self-care (01) | LOC: WOUND 00:32 | DX: E11.621 Type 2 diabetes mellitus with foot ulcer (principal); L97.425 Non-pressure chronic ulcer of left heel and midfoot with muscle involvement without evidence of necrosis; E11.40 Type 2 diabetes mellitus with diabetic neuropathy, unspecified; I10 Essential (primary) hypertension; M19.90 Unspecified osteoarthritis, unspecified site; N40.0 Benign prostatic hyperplasia without lower urinary tract symptoms; Z72.0 Tobacco use | CPT/HCPCS: A9270 ==

== ENCOUNTER 2022-01-10 01:54 | Day surgery (SDC) | payer OTHER | END 2022-01-10 23:14 | disposition home or self-care (01) | LOC: WOUND 01:54 | DX: E11.621 Type 2 diabetes mellitus with foot ulcer (principal); I10 Essential (primary) hypertension; N40.0 Benign prostatic hyperplasia without lower urinary tract symptoms; Z87.891 Personal history of nicotine dependence; G47.33 Obstructive sleep apnea (adult) (pediatric); L97.522 Non-pressure chronic ulcer of other part of left foot with fat layer exposed | CPT/HCPCS: G0463 ==

== ENCOUNTER 2022-01-17 02:39 | Day surgery (SDC) | payer OTHER | END 2022-01-17 23:05 | disposition home or self-care (01) | LOC: WOUND 02:39 | DX: E11.621 Type 2 diabetes mellitus with foot ulcer (principal); I10 Essential (primary) hypertension; N40.0 Benign prostatic hyperplasia without lower urinary tract symptoms; Z87.891 Personal history of nicotine dependence; G47.33 Obstructive sleep apnea (adult) (pediatric); M19.90 Unspecified osteoarthritis, unspecified site; E11.40 Type 2 diabetes mellitus with diabetic neuropathy, unspecified | CPT/HCPCS: G0463 ==

== ENCOUNTER 2022-01-31 01:29 | Day surgery (SDC) | payer OTHER | END 2022-01-31 22:56 | disposition home or self-care (01) | LOC: WOUND 01:29 | DX: E11.621 Type 2 diabetes mellitus with foot ulcer (principal); L97.522 Non-pressure chronic ulcer of other part of left foot with fat layer exposed; I10 Essential (primary) hypertension; G47.33 Obstructive sleep apnea (adult) (pediatric); N40.0 Benign prostatic hyperplasia without lower urinary tract symptoms; Z87.891 Personal history of nicotine dependence | CPT/HCPCS: G0463 ==

== ENCOUNTER 2022-02-21 00:38 | Day surgery (SDC) | payer OTHER | END 2022-02-21 23:12 | disposition home or self-care (01) | LOC: WOUND 00:38 | DX: E11.621 Type 2 diabetes mellitus with foot ulcer (principal); I87.2 Venous insufficiency (chronic) (peripheral); I10 Essential (primary) hypertension; N40.0 Benign prostatic hyperplasia without lower urinary tract symptoms; Z87.891 Personal history of nicotine dependence; G47.33 Obstructive sleep apnea (adult) (pediatric); L97.522 Non-pressure chronic ulcer of other part of left foot with fat layer exposed | CPT/HCPCS: A9270; G0463 ==

== ENCOUNTER 2022-02-28 04:04 | Day surgery (SDC) | payer OTHER | END 2022-02-28 23:09 | disposition home or self-care (01) | LOC: WOUND 04:04 | PROC: 0JBR0ZZ Excision of Left Foot Subcutaneous Tissue and Fascia, Open Approach (ICD-10-PCS; principal; 2022-02-28) | DX: E11.621 Type 2 diabetes mellitus with foot ulcer (principal); L97.422 Non-pressure chronic ulcer of left heel and midfoot with fat layer exposed; I10 Essential (primary) hypertension; Z72.0 Tobacco use ==

== ENCOUNTER 2022-03-07 04:56 | Day surgery (SDC) | payer OTHER | END 2022-03-07 23:05 | disposition home or self-care (01) | LOC: WOUND 04:56 | DX: E11.621 Type 2 diabetes mellitus with foot ulcer (principal); L97.522 Non-pressure chronic ulcer of other part of left foot with fat layer exposed; Z72.0 Tobacco use; E11.40 Type 2 diabetes mellitus with diabetic neuropathy, unspecified | CPT/HCPCS: 99406; G0463 ==

== ENCOUNTER 2022-03-14 01:34 | Day surgery (SDC) | payer OTHER | END 2022-03-14 22:55 | disposition home or self-care (01) | LOC: WOUND 01:34 | DX: E11.621 Type 2 diabetes mellitus with foot ulcer (principal); L97.425 Non-pressure chronic ulcer of left heel and midfoot with muscle involvement without evidence of necrosis; E11.40 Type 2 diabetes mellitus with diabetic neuropathy, unspecified; I10 Essential (primary) hypertension; M19.90 Unspecified osteoarthritis, unspecified site; G47.33 Obstructive sleep apnea (adult) (pediatric); Z87.891 Personal history of nicotine dependence | CPT/HCPCS: 99406; G0463 ==

== ENCOUNTER 2022-03-21 00:20 | Day surgery (SDC) | payer OTHER | END 2022-03-21 23:38 | disposition home or self-care (01) | LOC: WOUND 00:20 | DX: E11.621 Type 2 diabetes mellitus with foot ulcer (principal); L97.425 Non-pressure chronic ulcer of left heel and midfoot with muscle involvement without evidence of necrosis; I10 Essential (primary) hypertension; G47.33 Obstructive sleep apnea (adult) (pediatric); Z87.891 Personal history of nicotine dependence | CPT/HCPCS: 99406; G0463 ==

== ENCOUNTER 2022-03-28 00:38 | Day surgery (SDC) | payer OTHER | END 2022-03-28 22:54 | disposition home or self-care (01) | LOC: WOUND 00:38 | DX: E11.621 Type 2 diabetes mellitus with foot ulcer (principal); L97.422 Non-pressure chronic ulcer of left heel and midfoot with fat layer exposed; L97.425 Non-pressure chronic ulcer of left heel and midfoot with muscle involvement without evidence of necrosis; I10 Essential (primary) hypertension; M19.90 Unspecified osteoarthritis, unspecified site; G47.33 Obstructive sleep apnea (adult) (pediatric); N40.0 Benign prostatic hyperplasia without lower urinary tract symptoms; Z87.891 Personal history of nicotine dependence | CPT/HCPCS: 99406; G0463 ==

== ENCOUNTER 2022-04-04 08:00 | Day surgery (SDC) | payer OTHER | END 2022-04-04 23:59 | disposition home or self-care (01) | LOC: WOUND 08:00 | DX: E11.621 Type 2 diabetes mellitus with foot ulcer (principal); L97.422 Non-pressure chronic ulcer of left heel and midfoot with fat layer exposed; L97.425 Non-pressure chronic ulcer of left heel and midfoot with muscle involvement without evidence of necrosis; I10 Essential (primary) hypertension; M19.90 Unspecified osteoarthritis, unspecified site; G47.33 Obstructive sleep apnea (adult) (pediatric); N40.0 Benign prostatic hyperplasia without lower urinary tract symptoms; E11.40 Type 2 diabetes mellitus with diabetic neuropathy, unspecified; Z87.891 Personal history of nicotine dependence | CPT/HCPCS: 99406; G0463 ==

== ENCOUNTER 2022-04-19 01:47 | Day surgery (SDC) | payer OTHER | END 2022-04-19 22:48 | disposition home or self-care (01) | LOC: WOUND 01:47 | DX: E11.40 Type 2 diabetes mellitus with diabetic neuropathy, unspecified (principal); I10 Essential (primary) hypertension; Z87.891 Personal history of nicotine dependence; N40.0 Benign prostatic hyperplasia without lower urinary tract symptoms | CPT/HCPCS: G0463 ==

== ENCOUNTER 2024-12-16 13:28 | Inpatient (IN) | payer OTHER ==
[~2024-12-16] VITALS: Ht 198.1 cm; Wt 165.2 kg
[~2024-12-16 13:28] MED LIST changes: +PRED20 PO; +SULTRIDS PO; +VISBIOME 112.51 EACH PO
[2024-12-16] MEDS ORDERED: Albuterol 2.5 MG/3 ML VIAL INH SCH (14:05)
[2024-12-16 14:42] LABS: BASOPHILS ABSOLUTE AUTO 0.08 K/mm3 (0.00-0.23); BASOPHILS PERCENT AUTO 1 % (0-2); EOSINOPHILS ABSOLUTE AUTO 0.61 K/mm3 (0.00-0.68); EOSINOPHILS PERCENT AUTO 7 % (0-6); Hematocrit 48.7 % (37.0-53.0); Hemoglobin 15.5 g/dL (13.5-17.5); IMMATURE GRAN ABSOLUTE AUTO 0.07 K/mm3 (0.00-0.10); IMMATURE GRAN PERCENT AUTO 1 % (0-1); LYMPHOCYTES ABSOLUTE AUTO 1.80 K/mm3 (0.84-5.20); LYMPHOCYTES PERCENT AUTO 21 % (21-46); MONOCYTES ABSOLUTE AUTO 0.56 K/mm3 (0.16-1.47); MONOCYTES PERCENT AUTO 6 % (4-13); Mean Corpuscular HGB Conc 31.8 g/dL (31.5-36.5); Mean Corpuscular Volume 95 fL (80-100); NEUTROPHILS ABSOLUTE AUTO 5.64 K/mm3 (1.96-9.15); NEUTROPHILS PERCENT AUTO 64 % (41-73); NRBC ABSOLUTE 0.00 K/mm3 (0.00-0.02); NRBC Auto 0.0 /100 WBC (0.0-0.2); Platelet Count 166 K/mm3 (150-400); RDW Coefficient Variation 14.6 % (11.7-14.2); RDW Standard Deviation 51.8 fL (35.1-46.3)
[2024-12-16 15:05] LABS: Alanine Aminotransfer (ALT/SGP 27.0 U/L (12-78); Albumin, Blood 3.6 g/dL (3.4-5.0); Albumin/Globulin Ratio 0.9 (0.8-1.8); Anion Gap 7.0 mmol/L (3-11); Aspartate Aminotrans (AST/SGOT 22.0 U/L (12-37); Bilirubin, Total 0.5 mg/dL (0.1-1.0); Blood Urea Nitrogen 24.0 mg/dL (8-24); CO2, Blood 32.0 mmol/L (21-32); Calcium, Blood 9.4 mg/dL (8.5-10.1); Chloride, Blood 102.0 mmol/L (98-108); Creatinine, Blood 1.08 mg/dL (0.60-1.20); Globulin, Blood 3.9 g/dL (2.2-4.0); Glucose, Blood 154.0 mg/dL (70-99); Potassium, Blood 4.2 mmol/L (3.5-5.5); Sodium, Blood 137.0 mmol/L (136-145); Total Protein, Blood 7.5 g/dL (6.4-8.2)
[2024-12-16 15:28] LABS: Influenza A, PCR NEGATIVE (NEGATIVE); Influenza B, PCR NEGATIVE (NEGATIVE); Resp Syncytial Virus, PCR NEGATIVE (NEGATIVE); SARS-Cov-2 (COVID-19) PCR, MMC NEGATIVE (NEGATIVE)
[2024-12-16] MEDS ORDERED: TORSE20 PO (17:19)
[2024-12-16] MEDS ORDERED: KLOR-CON 1010 ME9 PO (17:21)
[2024-12-16] MEDS ORDERED: Aspir 8181 MG PO (17:22)
[2024-12-16] MEDS ORDERED: GLIP5 PO (17:22)
[2024-12-16] MEDS ORDERED: DUTASTERIDE0.5 M3 PO (17:23)
[2024-12-16 18:14] VITALS: BP 119/91
[2024-12-16] MEDS ORDERED: Budesonide 0.5 MG/2 ML RESP INH SCH (18:35)
[2024-12-16] MEDS ORDERED: FLU VACC TS2025(65UP)/MF59C/PF 45 MCG/0.5 ML SYRINGE IM SCH (18:50)
--- NOTE | 2024-12-16 19:22 | NUR ---
PT ARRIVED TO UNIT AT 181. PATIENT A/O X 4, FOLLOWS COMMANDS. AFIB 80-100s, MAP >65. PATIENT 94% ON 2L NC, TACHYPNEIC, WHEEZING THROUGHOUT. FREQUENT COUGHING FITS. SOB WITH EXERTION. PATIENT TRANSFERRED FROM BED TO COMMODE USING FWW AND MINIMAL ASSISTANCE, TOLERATED WELL. DENIES CHEST PAIN/PRESSURE/TIGHTNESS. REPORT GIVEN TO MARTY RN TO ASSUME CARE OF PT.
[2024-12-16 20:13] VITALS: BP 153/97
[2024-12-16] MEDS ORDERED: Albuterol 2.5 MG/3 ML VIAL INH PRN (20:45)
[2024-12-16] MEDS ORDERED: Insulin Human Lispro 100 Units/ML 3ML Syringe SC SCH (21:00)
[2024-12-17] VITALS (7 sets, daily range): BP systolic 117–143; BP diastolic 63–84
[2024-12-17 03:19] LABS: pH Blood Venous 7.44 (7.34-7.37)
[2024-12-17 03:26] LABS: BASOPHILS ABSOLUTE AUTO 0.03 K/mm3 (0.00-0.23); BASOPHILS PERCENT AUTO 0 % (0-2); EOSINOPHILS ABSOLUTE AUTO 0.00 K/mm3 (0.00-0.68); EOSINOPHILS PERCENT AUTO 0 % (0-6); Hematocrit 47.8 % (37.0-53.0); Hemoglobin 15.2 g/dL (13.5-17.5); IMMATURE GRAN ABSOLUTE AUTO 0.03 K/mm3 (0.00-0.10); IMMATURE GRAN PERCENT AUTO 0 % (0-1); LYMPHOCYTES ABSOLUTE AUTO 0.84 K/mm3 (0.84-5.20); LYMPHOCYTES PERCENT AUTO 10 % (21-46); MONOCYTES ABSOLUTE AUTO 0.03 K/mm3 (0.16-1.47); MONOCYTES PERCENT AUTO 0 % (4-13); Mean Corpuscular HGB Conc 31.8 g/dL (31.5-36.5); Mean Corpuscular Volume 94 fL (80-100); NEUTROPHILS ABSOLUTE AUTO 7.62 K/mm3 (1.96-9.15); NEUTROPHILS PERCENT AUTO 89 % (41-73); NRBC ABSOLUTE 0.00 K/mm3 (0.00-0.02); NRBC Auto 0.0 /100 WBC (0.0-0.2); Platelet Count 152 K/mm3 (150-400); RDW Coefficient Variation 14.6 % (11.7-14.2); RDW Standard Deviation 50.1 fL (35.1-46.3)
[2024-12-17 03:52] LABS: Alanine Aminotransfer (ALT/SGP 26.0 U/L (12-78); Albumin, Blood 3.5 g/dL (3.4-5.0); Albumin/Globulin Ratio 0.9 (0.8-1.8); Anion Gap 10.0 mmol/L (3-11); Aspartate Aminotrans (AST/SGOT 19.0 U/L (12-37); Bilirubin, Total 0.5 mg/dL (0.1-1.0); Blood Urea Nitrogen 27.0 mg/dL (8-24); CO2, Blood 26.0 mmol/L (21-32); Calcium, Blood 9.6 mg/dL (8.5-10.1); Chloride, Blood 103.0 mmol/L (98-108); Creatinine, Blood 0.81 mg/dL (0.60-1.20); Globulin, Blood 3.8 g/dL (2.2-4.0); Glucose, Blood 236.0 mg/dL (70-99); Potassium, Blood 4.1 mmol/L (3.5-5.5); Sodium, Blood 135.0 mmol/L (136-145); Total Protein, Blood 7.3 g/dL (6.4-8.2)
--- NOTE | 2024-12-17 06:04 | NUR ---
SHIFT SUMMARY PATIENT WAS ADMIT JUST PRIOR TO START OF THIS SHIFT. A/OX4. PLEASANT AND COOPERATIVE. SBA TO BSC TO VOID. GOOD URINE OUTPUT. ARUNA PO INTAKE. OCCASIONAL SOB AT REST. HACKING, THICK, PRODUCTIVE COUGH THAT IS RICHARD/BROWN IN COLOR. AMOUNT OF SPUTUM INCREASED AFTER BREATHING TX. PATIENT WOULD HAVE HACKING FITS WHERE HE COULD NOT STOP COUGHING FOR SHORT PERIOD OF TIME. PROVIDED PATIENT WITH PERCUSSION TO BACK DURING COUGHING FITS. PATIENT REPORTS THIS HELPED HIM EXPECTORATE SPUTUM. DENIED CHEST PAIN. PATIENT C/O BACK PAIN AND VU TOWARD BEGINNING OF SHIFT. HOSPITALIST SUDARSHAN UNIT AIDE NOTIFIED. TYLENOL PROVIDED PER EMAR. REVIEWED CHART. NO IMAGING DONE FOR INJURIES. PATIENT SHOWING NO NEURO SYMPTOMS. HEADACHE MOSTLY RESOLVED. VSS. ARUNA CPAP WELL WHILE SLEEPING. PLAN OF CARE ONGOING.
[2024-12-17] MEDS ORDERED: Colchicine 0.6 MG TAB PO SCH (09:00)
[2024-12-17] MEDS ORDERED: Enoxaparin 40 MG/0.4 ML SYR SC SCH (09:00)
--- NOTE | 2024-12-17 17:26 | NUR ---
SHIFT SUMMARY PT A/O X 4, MAKES NEEDS KNOWN AND IS COOPERATIVE WITH CARE. HE REPORTS MILD HEADACHE SINCE FALL 12/16/24, DECLINES MEDS. PT IN AFIB, 70-100s. DENIES CHEST PAIN OR PRESSURE. SATS >90% ON 1-2L NC. WEARS CPAP AT NIGHT AND FOR NAPS. PT EXPERIENCES FREQUENT COUGHING FITS WITH MODERATE AMOUNT OF THICK, RICHARD SPUTUM. PT USES SUCTION TO CLEAR SECRETIONS. PATIENT AMBULATES TO BATHROOM WITH FWW AND SBA, TOLERATES WELL. HE HAS BEEN SITTING IN RECLINER FOR MOST OF THE DAY. PATIENT AGREEABLE TO CARE PLAN. CALL LIGHT IN REACH.
[2024-12-18 03:53] VITALS: BP 109/69
--- NOTE | 2024-12-18 06:14 | NUR ---
SHIFT SUMMARY PATIENT A/O X4. PLEASANT, COOPERATIVE, AND ENGAGING IN CARE. PATIENT REQUIRED NO OXYGEN OVERNIGHT. SLEPT WITH CPAP ON TO HOME SETTINGS. HE WOULD OCCASIONALLY DESATURATE TO 88-89%, BUT WOULD RETURN TO >92% AFTER COUGHING UP PLEGM. PATIENT AMBULATED SEVERAL TIMES TO WITH SBA AND STEADY GAIT. PATIENT DID HAVE SEVERAL COUGHING FITS PREVIOUSLY NOTED BUT WERE NOT SEVERE. ANTICIPATE PATIENT WILL STATUS CHANGE TODAY. PLAN OF CARE ONGOING.
[2024-12-18 08:05] LABS: BASOPHILS ABSOLUTE AUTO 0.02 K/mm3 (0.00-0.23); BASOPHILS PERCENT AUTO 0 % (0-2); EOSINOPHILS ABSOLUTE AUTO 0.01 K/mm3 (0.00-0.68); EOSINOPHILS PERCENT AUTO 0 % (0-6); Hematocrit 48.9 % (37.0-53.0); Hemoglobin 15.8 g/dL (13.5-17.5); IMMATURE GRAN ABSOLUTE AUTO 0.09 K/mm3 (0.00-0.10); IMMATURE GRAN PERCENT AUTO 1 % (0-1); LYMPHOCYTES ABSOLUTE AUTO 1.36 K/mm3 (0.84-5.20); LYMPHOCYTES PERCENT AUTO 8 % (21-46); MONOCYTES ABSOLUTE AUTO 0.51 K/mm3 (0.16-1.47); MONOCYTES PERCENT AUTO 3 % (4-13); Mean Corpuscular HGB Conc 32.3 g/dL (31.5-36.5); Mean Corpuscular Volume 93 fL (80-100); NEUTROPHILS ABSOLUTE AUTO 14.56 K/mm3 (1.96-9.15); NEUTROPHILS PERCENT AUTO 88 % (41-73); NRBC ABSOLUTE 0.00 K/mm3 (0.00-0.02); NRBC Auto 0.0 /100 WBC (0.0-0.2); Platelet Count 164 K/mm3 (150-400); RDW Coefficient Variation 14.8 % (11.7-14.2); RDW Standard Deviation 50.7 fL (35.1-46.3)
[2024-12-18 08:29] LABS: Anion Gap 11.0 mmol/L (3-11); Blood Urea Nitrogen 30.0 mg/dL (8-24); CO2, Blood 27.0 mmol/L (21-32); Calcium, Blood 9.6 mg/dL (8.5-10.1); Chloride, Blood 98.0 mmol/L (98-108); Creatinine, Blood 0.9 mg/dL (0.60-1.20); Glucose, Blood 187.0 mg/dL (70-99); Magnesium, Blood 2.4 mg/dL (1.6-2.4); Potassium, Blood 4.1 mmol/L (3.5-5.5); Sodium, Blood 132.0 mmol/L (136-145)
[2024-12-18 11:25] VITALS: BP 135/67
[2024-12-18 13:47] LABS: pH Blood Venous 7.36 (7.34-7.37)
[2024-12-18] MEDS ORDERED: SYMBICORT 160-4.6 GM INH (15:01)
[2024-12-18] MEDS ORDERED: PRED20 PO (15:01)
--- NOTE | 2024-12-18 15:39 | NUR ---
DISCHARGE SUMMARY PT A/O X 4 THROUGHOUT SHIFT AND COOPERATIVE WITH CARE. BP AND HEART RATE STABLE THROUGHOUT SHIFT, DENIES CHEST PAIN/PRESSURE. NO OXYGEN REQUIRED SINCE ASSUMPTION OF CARE. PATIENT STILL HAS HACKING COUGH AND WHEEZING HEARD IN BASES, SIGNIFICANTLY IMPROVED SINCE YESTERDAY. SATS MAINTAINED DENIES FEELING SHORT OF BREATH. NO SIGNS OF RESPIRATORY DISTRESS. PATIENT UP AND WALKING DOWN HALLWAY USING FWW WITH PHYSICAL THERAPY, TOLERATED WELL. REVEIWED DISCHARGE ORDERS WITH PATIENT. ALL OF HIS QUESTIONS ANSWERED. TELE AND IV REMOVED BY PCT. PATIENT WHEELED OUT WITH BELONGINGS AND DISCHARGE PACKET AT 1530.
[2024-12-18] MEDS ORDERED: IPRAT-ALBUT 0.5-3 ML INH (15:51)
== END 2024-12-18 15:40 | disposition home health service (06) | DRG 189 ==
LOC: ER 13:28 → PCU 16:24
PROVIDERS: Emergency Medicine; Student in an Organized Health Care Education/Training Program; ADMIT Internal Medicine
PROC: 5A09357 Assistance with Respiratory Ventilation, Less than 24 Consecutive Hours, Continuous Positive Airway Pressure (ICD-10-PCS; principal; 2024-12-16)
DX: J96.01 Acute respiratory failure with hypoxia (principal); J44.1 Chronic obstructive pulmonary disease with (acute) exacerbation; I50.32 Chronic diastolic (congestive) heart failure; I13.0 Hypertensive heart and chronic kidney disease with heart failure and stage 1 through stage 4 chronic kidney disease, or unspecified chronic kidney disease; I48.20 Chronic atrial fibrillation, unspecified; I44.2 Atrioventricular block, complete; Z68.41 Body mass index [BMI] 40.0-44.9, adult; G47.33 Obstructive sleep apnea (adult) (pediatric); N18.32 Chronic kidney disease, stage 3b; E11.22 Type 2 diabetes mellitus with diabetic chronic kidney disease; H54.62 Unqualified visual loss, left eye, normal vision right eye; E11.51 Type 2 diabetes mellitus with diabetic peripheral angiopathy without gangrene; M10.9 Gout, unspecified; E78.5 Hyperlipidemia, unspecified; E11.42 Type 2 diabetes mellitus with diabetic polyneuropathy; G25.81 Restless legs syndrome; F10.20 Alcohol dependence, uncomplicated; E66.01 Morbid (severe) obesity due to excess calories; Z77.22 Contact with and (suspected) exposure to environmental tobacco smoke (acute) (chronic); Z95.0 Presence of cardiac pacemaker; Z79.01 Long term (current) use of anticoagulants; Z88.5 Allergy status to narcotic agent; Z88.8 Allergy status to other drugs, medicaments and biological substances; Z88.0 Allergy status to penicillin; Z88.1 Allergy status to other antibiotic agents; Z79.84 Long term (current) use of oral hypoglycemic drugs
CPT/HCPCS: 36415; 71045; 80048; 80053; 82803; 82947; 83735; 83880; 84484; 85025; 87637; 93005; 93010; 94640; 94660; 94664; 94762; 96374; 97166; 97530; 99285-25; A9270; J1650; J2919

== ENCOUNTER → 2025-01-11 | Outpatient (CLI) | payer OTHER ==
[~2025-01-11] MED LIST changes: +Aspir 8181 MG PO; +DUTASTERIDE0.5 M3 PO; +GLIP5 PO; +IPRAT-ALBUT 0.5-3 ML INH; +KLOR-CON 1010 ME9 PO; +SYMBICORT 160-4.6 GM INH
== END | disposition home or self-care (01) ==
LOC: LAB SHORT 14:49 → LAB 14:49
DX: N34.2 Other urethritis (principal)
CPT/HCPCS: 87086